=== PATIENT | male | born 1970 | race Caucasian/White ===

== ENCOUNTER 2017-06-17 12:10 | Emergency (ER) | payer MEDICAID ==
[2017-06-17 12:19] VITALS: BP 127/75
[2017-06-17] MEDS ORDERED: HYDROcod/ACETAM 5/325 MG TABLET PO STA (12:50)
--- NOTE | 2017-06-17 12:53 | ED Physician Documentation ---
PD HPI TRUNK INJURY - Stated complaint Stated Complaint: GLF/R SIDE PX - Chief complaint Chief Complaint: General - History obtained from History obtained from: Patient - History of Present Illness Location: Right chest, Mid back (R side posterior ribs) Type of injury: Fall Timing - onset: How many days ago (5) Timing - duration: Days (5) Timing - details: Abrupt onset Pain level max: 8 Pain level now: 8 Quality: Pain, Spasm Improved by: Rest Worsened by: Moving, Palpating Associated symtptoms: No: Weakness, Numbness, Tingling, Swelling Contributing factors: No: Anticoagulated, Other injury Where injury occured: Home - Additional information Additional information: taking ibuprofen, states pain worsening. Fell down the stairs 5 days ago. Review of Systems Constitutional: denies: Fever, Chills GI: denies: Nausea, Vomiting, Diarrhea Skin: denies: Rash Musculoskeletal: denies: Neck pain, Back pain Neurologic: denies: Headache PD PAST MEDICAL HISTORY - Past Medical History Past Medical History: No - Past Surgical History Past Surgical History: Yes Ortho: Spine surgery - Present Medications Home Medications: Ambulatory Orders Medication Instructions Recorded Confirmed Hydrocodone/Acetaminophen 1 - 2 each PO Q6H PRN #20 tablet 06/17/17 [Hydrocodon-Acetaminophen 5-325] - Allergies Allergies/Adverse Reactions: Allergies Allergy/AdvReac Type Severity Reaction Status Date / Time No Known Drug Allergies Allergy Verified 06/17/17 12:19 - Social History Does the pt smoke?: Yes Smoking Status: Current every day smoker Does the pt drink ETOH?: Yes Does the pt have substance abuse?: No - Immunizations Immunizations are current?: No PD ED PE NORMAL - Vitals Vital signs reviewed: Yes - General General: Alert and oriented X 3, No acute distress - HEENT HEENT: Atraumatic, PERRL - Neck Neck: No bony TTP - Cardiac Cardiac: RRR - Respiratory Respiratory: No respiratory distress, Clear bilaterally, Other (TTP over R anterior and posterior ribs diffusely. No crepitus. No ecchymosis) - Abdomen Abdomen: Soft, Non tender - Back Back: No CVA TTP, No spinal TTP - Derm Derm: Warm and dry - Neuro Neuro: Alert and oriented X 3 - Psych Psych: Normal mood, Normal affect Results - Vitals Vitals: Vital Signs - 24 hr 06/17/17 12:17 Temperature 36.8 C Heart Rate 81 Respiratory 16 Rate Blood Pressure 127/75 O2 Saturation 99 Oxygen O2 Source Room air - Rads (name of study) R rib xray Radiology: Prelim report reviewed, EMP read contemporaneously, See rad report ( Mildly displaced right anterolateral fifth and sixth rib fractures. ) PD MEDICAL DECISION MAKING - ED course Complexity details: reviewed results, re-evaluated patient, considered differential, d/w patient ED course: Patient is a 46-year-old male who presents to the emergency department after a fall down the stairs several days ago. Appears to have right anterolateral Fifth and sixth rib fractures. No pneumothorax. Lungs are normal. Pain well controlled. Will prescribe a small amount of pain medication for home and follow-up with his doctor. He is well-appearing, nontoxic. Afebrile. No hypoxia. Patient counseled regarding signs and symptoms for which I believe and urgent re-evaluation would be necessary. Patient with good understanding of and agreement to plan and is comfortable going home at this time This document was made in part using voice recognition software. While efforts are made to proofread this document, sound alike and grammatical errors may occur. Departure - Departure Disposition: 01 Home, Self Care Clinical Impression: Rib fracture Qualifiers: Encounter type: initial encounter Rib fracture type: multiple ribs Fracture type: closed Laterality: right Qualified Code(s): S22.41XA - Multiple fractures of ribs, right side, initial encounter for closed fracture Condition: Good Instructions: ED Fx Rib Follow-Up: your,doctor in 1 week [Other] Prescriptions: Hydrocodone/Acetaminophen [Hydrocodon-Acetaminophen 5-325] 1 - 2 each PO Q6H PRN #20 tablet PRN Reason: pain Comments: You have 2 broken ribs on your xray today. This may take several weeks to heal. Do not drink alcohol or drive while on narcotic pain medicine. Note that many narcotic pain relievers also contain tylenol/acetaminophen. Please ensure that your total dose of acetaminophen from all sources does not exceed 3 grams (3000mg) per day. You may constipated on this medication, take a stool softener such as "Colace" twice a day while you are on it. Also recommend a [id number]-ruq-[id number] laxative such as senna or MiraLAX any day that you do not have a bowel movement. If you received narcotic pain medication in the emergency department, do not drive or operate machinery for the next 24 hours. Your blood pressure was elevated today on check in to the emergency department. This does not mean that you have hypertension, it is a common phenomenon to check into the emergency department and have elevated blood pressure. I recommend that you see your primary care physician within the week to have it rechecked when you're feeling better. Discharge Date/Time: 06/17/17 14:12
[2017-06-17] MEDS ORDERED: HYDROcod/ACETAM 5/325 MG TABLET ONE (13:05)
--- NOTE | 2017-06-17 13:22 | XRAY Preliminary Report ---
Exam: XR Ribs w/PA Chest RT IMPRESSION: Mildly displaced right anterolateral fifth and sixth rib fractures. [facility] SITE ID: [id number]
--- NOTE | 2017-06-17 13:25 | XRAY Report ---
EXAM: RIGHT RIB RADIOGRAPHY EXAM DATE: 06/17/2017 01:12 PM. CLINICAL HISTORY: R rib pain s/p fall. COMPARISON: None. TECHNIQUE: 1 view of the chest and 2 views of the ribs. FINDINGS: Bones: There are mildly displaced right anterolateral fifth and sixth rib fractures. Lungs: No focal opacities. No pneumothorax. No pleural effusions. Mediastinum: Heart and mediastinal contours are unremarkable. Other: None. IMPRESSION: Mildly displaced right anterolateral fifth and sixth rib fractures. [facility] Referring Provider Line: [phone] SITE ID: [id number]
== END 2017-06-17 14:12 | disposition home or self-care (01) ==
LOC: ED 12:10
DX: S22.41XA Multiple fractures of ribs, right side, initial encounter for closed fracture (principal); W01.0XXA Fall on same level from slipping, tripping and stumbling without subsequent striking against object, initial encounter; R03.0 Elevated blood-pressure reading, without diagnosis of hypertension; F17.200 Nicotine dependence, unspecified, uncomplicated
CPT/HCPCS: 71101; 99283; A9270

== ENCOUNTER 2018-03-14 14:13 | Inpatient (IN) | payer MEDICAID ==
[2018-03-14] MEDS ORDERED: MORPHINE 2 MG/ML SYRINGE IVP STA ×2 (14:30→15:53)
[2018-03-14] MEDS ORDERED: AMPICILLIN/SULBACTAM 3 GM in SODIUM CHLORIDE 0.9% MINIBAG 100 ML IV STA (14:30)
[2018-03-14] MEDS ORDERED: VANCOMYCIN INJ 2 GM in SODIUM CHLORIDE 0.9% 500 ML IV STA (14:30)
--- NOTE | 2018-03-14 14:31 | ED Physician Documentation ---
PD HPI UPPER EXT INJURY - Stated complaint Stated Complaint: L MIDDLE FINGER SWOLLEN - Chief complaint Chief Complaint: Ext Problem - History obtained from History obtained from: Patient - History of Present Illness Location: Other (Right-handed gentleman who maybe got a little scrape on his left middle finger a few days ago and of the last 24 hours has become significantly swollen and very painful. He may have a subjective fever he is not sure. N.p.o. since may be an hour ago when he drank a beer.) Worsened by: Moving Associated symptoms: Swelling Contributing factors: No: Anticoagulated Review of Systems Ten Systems: 10 systems reviewed and negative Constitutional: reports: Fever. denies: Chills Nose: reports: Reviewed and negative Cardiac: reports: Reviewed and negative Respiratory: reports: Reviewed and negative PD PAST MEDICAL HISTORY - Past Medical History Past Medical History: No - Past Surgical History Past Surgical History: Yes Ortho: Spine surgery - Present Medications Home Medications: Ambulatory Orders Medication Instructions Recorded Confirmed No Known Home Medications [No 03/14/18 03/14/18 Known Home Medications] - Allergies Allergies/Adverse Reactions: Allergies Allergy/AdvReac Type Severity Reaction Status Date / Time No Known Drug Allergies Allergy Verified 06/17/17 12:19 - Social History Does the pt smoke?: Yes Smoking Status: Current every day smoker Does the pt drink ETOH?: Yes ETOH Use: Beer Does the pt have substance abuse?: Yes Substance Use and Type: Marijuana - Family History Family history: reports: Non contributory - Immunizations Immunizations are current?: No Immunizations: TDAP >10years/unknown - POLST Patient has POLST: No PD ED PE NORMAL - Vitals Vital signs reviewed: Yes - General General: Alert and oriented X 3, No acute distress - HEENT HEENT: PERRL, EOMI - Neck Neck: Supple, no meningeal sign, No bony TTP - Cardiac Cardiac: RRR, No murmur - Respiratory Respiratory: No respiratory distress, Clear bilaterally - Abdomen Abdomen: Normal bowel sounds, Soft, Non tender - Back Back: No CVA TTP, No spinal TTP - Derm Derm: Normal color, Warm and dry - Extremities Extremities: Other (He has a massive abscess of the left middle finger, almost circumferential around the proximal phalanx. He is unable to move it at all. He does not really have other signs of flexor tenosynovitis, specifically he does not have pain with palpation along the flexor tendon sheath proximally.) - Neuro Neuro: Alert and oriented X 3 Eye Opening: Spontaneous Motor: Obeys Commands Verbal: Oriented GCS Score: 15 - Psych Psych: Normal mood, Normal affect Results - Vitals Vitals: Vital Signs - 24 hr 03/14/18 14:16 Temperature 36.7 C Heart Rate 89 Respiratory 18 Rate Blood Pressure 124/74 O2 Saturation 100 Oxygen O2 Source Room air - Labs Labs: Microbiology 03/14/18 15:24 Wound Culture - Preliminary Abscess Laboratory Tests 03/14/18 03/14/18 14:35 14:35 WBC 11.2 H RBC 4.97 Hgb 15.5 Hct 46.4 MCV 93.4 MCH 31.1 H MCHC 33.3 RDW 14.5 Plt Count 320 MPV 8.9 Neut # 8.7 H Lymph # 1.6 Vance # 0.7 Eos # 0.1 Baso # 0.1 Absolute Nucleated RBC 0.00 Nucleated RBC % 0.0 Sodium 136 Potassium 3.8 Chloride 106 Carbon Dioxide 22 Anion Gap 8.0 BUN 7 Creatinine 0.7 Estimated GFR (MDRD) 121 Glucose 136 H Calcium 9.3 - Rads (name of study) L Hand Radiology: EMP read contemporaneously ([facility] LMF) PD MEDICAL DECISION MAKING - ED course ED course: This is a 47-year-old gentleman with a very large hand and finger abscess that will likely need incision and drainage in the operating room and I spoke with Dr. Chandler for admission at 2:[address] Chandler did an incision and drainage at the bedside. I spoke with Dr. Dominique for admission at 3:28 PM. Departure - Departure Disposition: [facility] DC/Xfer Clinical Impression: Hand abscess Condition: Stable Discharge Date/Time: 03/14/18 16:48
[2018-03-14 14:42] LABS: BASOPHILS # (AUTO) 0.1 10^3/uL (0.0-0.1); BASOPHILS % (AUTO) 0.5 %; EOSINOPHILS # (AUTO) 0.1 10^3/uL (0.0-0.7); EOSINOPHILS % (AUTO) 0.8 %; HGB - HEMOGLOBIN 15.5 g/dL (14.0-18.0); LYMPHOCYTES # (AUTO) 1.6 10^3/uL (1.5-3.5); LYMPHOCYTES % (AUTO) 14.7 %; MEAN CORPUSCULAR HEMOGLOBIN 31.1 pg (27.0-31.0); MEAN CORPUSCULAR HGB CONC 33.3 g/dL (32.0-36.0); MEAN CORPUSCULAR VOLUME 93.4 fL (80.0-94.0); MEAN PLATELET VOLUME 8.9 fL (7.4-11.4); MONOCYTES # (AUTO) 0.7 10^3/uL (0.0-1.0); MONOCYTES % (AUTO) 5.9 %; NEUTROPHILS # (AUTO) 8.7 10^3/uL (1.5-6.6); NEUTROPHILS % (AUTO) 78.1 %; PLT - PLATELET COUNT 320 10^3/uL (130-450); RED BLOOD COUNT 4.97 10^6/uL (4.70-6.10); RED CELL DISTRIBUTION WIDTH 14.5 % (12.0-15.0); WHITE BLOOD COUNT 11.2 x10^3/uL (4.8-10.8)
[2018-03-14 14:50] LABS: CALCIUM 9.3 mg/dL (8.5-10.3); CREATININE 0.7 mg/dL (0.6-1.2)
[2018-03-14] MEDS ORDERED: VANCOMYCIN 1 GM VIAL ONE (14:58)
[2018-03-14] MEDS ORDERED: LIDOCAINE 1%-EPI 1:100000 30 ML MDV ONE (15:08)
--- NOTE | 2018-03-14 15:32 | XRAY Report ---
EXAM: LEFT HAND RADIOGRAPHY EXAM DATE: 03/14/2018 02:54 PM. CLINICAL HISTORY: LMF infection. COMPARISON: None. TECHNIQUE: 3 views. FINDINGS: Moderately severe soft tissue swelling noted involving the middle finger. No apparent foreign body material. No soft tissue gas identified. No associated bony abnormality. Articulations throughout the hand are unremarkable. IMPRESSION: Soft tissue swelling of the middle finger without additional abnormality. [facility] Referring Provider Line: [phone] SITE ID: [id number]
--- NOTE | 2018-03-14 15:32 | XRAY Preliminary Report ---
Exam: XR HAND 3 VIEW LT IMPRESSION: Soft tissue swelling of the middle finger without additional abnormality. [facility] SITE ID: [id number]
[2018-03-14] MEDS ORDERED: ONDANSETRON 4 MG/2 ML VIAL IVP PRN (15:53)
[2018-03-14] MEDS ORDERED: SODIUM CHLORIDE FLUSH 0.9% 10 ML SYRINGE IVP PRN (15:53)
--- NOTE | 2018-03-14 16:03 | HISTORY & PHYSICAL EXAMINATION ---
Chief Complaint - Chief Complaint Chief Complaint: left hand abscess and pain History of Present Illness - Admitted From Admitted From:: ER - History Obtained From History obtained from: pt - History of Present Illness HPI Comment/Other: Mr. Lassiter is 47-yrs-old male, unfortunately homeless, with a PMH significant for cigarette smoker, illicit drug methamphetamine abuse, who present ER complaint of left hand infection. Pt report he had a tiny scrape on his left middle finger 3-4 days, then the site rapidly developed significant swelling and very painful. Pt denies fever, chill. Xray reveals soft tissue swelling of the middle finger without additional abnormality. Orthopedics was consulted in ER. Dr. Rico then did I/D for pt. Pt report he smokes 6-7 cigarettes daily, also he report he still smokes Methamphetamine. Lab test ER reveals slight elevated WBC, otherwise is unremarkable. Pt is admitted for treatment of hand infection. History - Past Medical History MRSA Hx?: No - Past Surgical History Ortho: reports: Spine surgery - Family & Social History Family History: Mother: Alive and Well (pt did not know his parents health conditions), Father: Alive and Well Family History Comment/Other: Pt report he is single, never . Pt state he has not been along with his parents. He does not know his parent medical conditions. His parents are living [facility] as well. He has one young brother, less 4 yrs than him. Living arrangement: Homeless Social History Notes: Pt report he is living at [facility]. He is homeless, no job. 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 He report he smokes 6-7 cigarette daily and report he is still smoking methamphetamine now. He denies he has alcohol issue. - Substance History Use: Uses substance without health or social issues: Tobacco Abuse: Recurrent use of substance despite neg consequences: Amphetamine Dependence: Experiences withdrawal or developed tolerances: Amphetamine - POLST Patient has POLST: No POLST Status: Full Code Meds/Allgy - Home Medications Home Medications: Ambulatory Orders Medication Instructions Recorded Confirmed No Known Home Medications [No 03/14/18 03/14/18 Known Home Medications] - Allergies Allergies/Adverse Reactions: Allergies Allergy/AdvReac Type Severity Reaction Status Date / Time No Known Drug Allergies Allergy Verified 06/17/17 12:19 Review of Systems - Constitutional Constitutional: denies: Fatigue, Fever, Chills, Malaise, Weakness, Poor appetite , Diaphoresis, Night sweats - Eyes Eyes: denies: Pain, Irritation, Amaurosis, Blurred vision, Spots in vision, Field loss, Vision loss, Dipolpia - Ears, Nose & Throat Ears, Nose & Throat: denies: Ear pain, Hearing loss, Hearing aids, Tinnitus, Vertigo, Nasal pain, Nasal discharge, Nosebleeds, Nasal obstruction, Nasal congestion, Dentures, Sore throat, Mouth lesions, Bleeding gums - Cardiovascular Cariovascular: denies: Irregular heart rate, Palpitations, Chest pain, Edema, Lightheadedness, Syncope, Exertional dyspnea, Decr. exercise tolerance - Respiratory Respiratory: denies: Cough, Sputum production, Wheezing, Snoring, Hemoptysis, Orthopnea, SOB at rest, SOB with exertion - Gastrointestinal Gastrointestinal: denies: Abdominal pain, Abdominal distention, Constipation, Diarrhea, Change in bowel habits, Rectal bleeding, Black stools, Bloody stools, Nausea, Vomiting, Rufino blood emesis, Coffee grounds emesis, Reflux/heartburn - Genitourinary Genitourinary: denies: Dysuria, Frequency, Urgency, Hematuria, Incontinence, Flank pain, Nocturia, Urethral discharge - Musculoskeletal Musculoskeletal: reports: Joint swelling. denies: Muscle pain, Back pain, Muscle aches, Stiffness, Limited range of motion, Muscle weakness, Gout, Joint pain - Integumentary Integumentary: denies: Rash, Pruritis, Lesions, Dryness, Lumps, Acne, Pigment changes, Nail changes, Hair changes - Neurological Neurological: denies: General weakness, Focal weakness, Headache, Dizziness, Numbness, Memory problems, Pre-existing deficit, Abnormal gait, Seizures, Incoordination, Slurred speech - Psychiatric Psychiatric: denies: Depression, Anxiety, Suicidal, Delusions, Hallucinations, Homicidal - Endocrine Endocrine: denies: Polyuria, Polydypsia, Polyphagia, Intolerance to cold - Hematologic/Lymphatic Hematologic/Lymphatic: denies: Anemia, Bruising, Petechiae, Blood clots, Lymphadenopathy, Bleeding tendencies, Recurrent infections Exam - Vital Signs Reviewed Vital Signs: Yes Vital Signs: Vital Signs x48h Temp Pulse Resp BP Pulse Ox 03/14/18 14:16 36.7 C 89 18 124/74 100 - Physical Exam General Appearance: positive: No acute distress, Alert. negative: Lethargic Eyes Bilateral: positive: Normal inspection, PERRL, No lid inflammation, Conjunctivae nml ENT: positive: ENT inspection nml, Pharynx nml, No signs of dehydration. negative: Purulent nasal drainage, Pharyngeal erythema, Oral lesions Neck: positive: Nml inspection, Thyroid nml, No JVD, Trachea midline. negative : Thyromegaly, Lymphadenopathy (R), Lymphadenopathy (L), Stiff neck, Carotid bruit, Swelling/bruising, Tracheal deviation Respiratory: positive: Chest non-tender, No respiratory distress, Breath sounds nml. negative: Wheezes, Rales, Rhonchi Cardiovascular: positive: Regular rate & rhythm, No murmur, No gallop. negative : Irregularly irregular, Extrasystoles, Tachycardia, Bradycardia, JVD present, Systolic murmur, Diastolic murmur Peripheral Pulses: positive: 2+ Abdomen: positive: Non-tender, No organomegaly, Nml bowel sounds, No distention. negative: Tenderness, Guarding, Rebound Back: positive: Nml inspection. negative: CVA tenderness (R), CVA tenderness (L ) Skin: positive: Color nml, No rash, Warm, Dry. negative: Cyanosis, Diaphoresis , Pallor Extremities: positive: Full ROM. negative: Calf tenderness, Joint swelling, Kristi's sign/cords Neurologic/Psychiatric: positive: Motor nml, Sensation nml. negative: Weakness , Sensory loss, Facial droop, Slurred/abnml speech, Depressed mood/affect Conclusion/Plan - Problem List (1) Hand abscess Conclusion/Plan: orthopedics did I/D for pt and wound culture, follow up blood culture Unsyn Vancomycin IVF pain control (2) Cigarette smoker Conclusion/Plan: Nicotine patch consult and advise pt quit cigarette smoking (3) Illicit drug use Conclusion/Plan: pt report he is current using methamphetamine UDS consult and advise pt quit (4) DVT prophylaxis Conclusion/Plan: SCD, pt had no limitation of mobility (5) Full code status Conclusion/Plan: pt request full code - Lab Results Fish Bones: 03/14/18 14:35 03/14/18 14:35 Core Measures - Anticipated LOS I expect patient to be DC'd or transferred within 96 hours.: Yes - DVT/VTE - Prophylaxis VTE/DVT Device ordered at admit?: Yes
[2018-03-14] MEDS ORDERED: VANCOMYCIN PER PHARMACY 1.5 GM in SODIUM CHLORIDE 0.9% 250 ML IV SCH (17:00)
--- NOTE | 2018-03-14 18:18 | CONSULTATION NOTE ---
DATE OF SERVICE: 03/14/2018 Physician: Sonny Chandler MD HISTORY OF PRESENT ILLNESS: Consultation from ED physician regarding left hand infection. This 47-year-old homeless man, previous bryan has had a 2-day course of pain and swelling in his left nondominant middle finger. He noticed this very slight wound in the volar crease of the proximal interphalangeal joint. This was several days ago. He did not know what might have caused the cut. This did seal off. He then had onset of swelling, pain in the middle finger. Seemed to be getting worse during the day, so he had a beer and came on in to the emergency room. He was not feeling sick all over. He admits to amphetamine use. PHYSICAL EXAMINATION: He is a very pleasant man, not very disheveled. In the left hand, he has obvious enlargement over the volar aspect of the proximal phalanx of the middle finger. This has a whitish appearance to it. It stops abruptly at the volar crease at the MCP joint. It goes around towards the dorsum of the digit, but does not get fully to the dorsum. Extends about half the distance between the PIP joint and DIP joint on the volar aspect. He is not tender in the palm. He is not tender at the volar wrist. He can actively flex and extend the digit through a limited range of motion, but it is not immobile as it would be in a flexor tendon infection. There is actually almost no swelling in the distal segment of the digit. X-RAYS: None. IMPRESSION: Very superficial infection, not involving the flexor tendon yet. PROCEDURE: After sterile preparation of the hand and some 1% lidocaine with epinephrine infiltrated into what seemed to be the dermis, a longitudinal incision was made with an 11 blade. There was immediate pus under pressure, which leaked out. A portion of this was sent for culture. The purulence was quite painful as it moved out. We washed this some with normal saline. The infection was primarily in the layer between the living dermis and the cornified epithelial dermis. There was a pus bulla. With a scalpel and scissors, I trimmed the listed cornified epithelium off the tissue below. Once we got a little more opening, it was possible to express more pus, which ran out easily. Then, we were able to run some lidocaine with epinephrine over the raw wound. This allowed him to be more comfortable as I trimmed off and unroofed as much of the bulla as possible. There was an area about 5 mm diameter towards the radial aspect of the PIP crease, which went slightly deeper. However, when he moved his digit, there was no visible tendon. More treatment with lidocaine was effective and allowing me to wash the finger significantly in the wound. It was very clean when finished. Xeroform gauze was used over this and dry absorbent bandage was applied over this. I think he should come into the hospital for at least 1 night of IV antibiotics and preferably 1-2 more depending on the condition of his hand. He is still at risk for developing a flexor tenosynovitis. Antibiotics were discussed with the hospitalist. cc: Benny Urrutia M.D. TD: 03/14/2018 16:43
[2018-03-14] MEDS: NICOTINE 14 MG PATCH TOP SCH (18:46)
[2018-03-14] MEDS: SODIUM CHLORIDE 0.9% 1,000 ML IV SCH (18:46)
[2018-03-14] MEDS: SODIUM CHLORIDE FLUSH 0.9% 10 ML SYRINGE IVP SCH (18:47)
[2018-03-14 18:49] LABS: MUDS CUTOFF CONCENTRATIONS CUTOFF CONC BELOW:
[2018-03-14] MEDS: AMPICILLIN/SULBACTAM 3 GM in SODIUM CHLORIDE 0.9% MINIBAG 100 ML IV SCH (18:57)
[2018-03-14 19:06] LABS: AMPHETAMINE SCREEN,URINE NEGATIVE (NEGATIVE); BENZODIAZEPINES SCREEN, URINE NEGATIVE (NEGATIVE); COCAINE SCREEN URINE NEGATIVE (NEGATIVE); METHADONE SCREEN, URINE NEGATIVE (NEGATIVE); METHAMPHETAMINES SCREEN, URINE NEGATIVE (NEGATIVE); OPIATE SCREEN, URINE POSITIVE (NEGATIVE); OXYCODONE SCREEN, URINE NEGATIVE (NEGATIVE); PROPOXYPHENE SCREEN, URINE NEGATIVE (NEGATIVE); TRICYCLIC ANTIDEPRESSANT,URINE NEGATIVE (NEGATIVE)
[2018-03-15] MEDS: VANCOMYCIN INJ 1 GM in SODIUM CHLORIDE 0.9% 250 ML IV SCH ×3 (00:42→16:29)
[2018-03-15] MEDS: MORPHINE 2 MG/ML SYRINGE IVP PRN ×3 (00:45→18:34)
[2018-03-15] MEDS: SODIUM CHLORIDE FLUSH 0.9% 10 ML SYRINGE IVP SCH ×3 (00:45→16:30)
[2018-03-15] MEDS: AMPICILLIN/SULBACTAM 3 GM in SODIUM CHLORIDE 0.9% MINIBAG 100 ML IV SCH ×4 (02:51→21:56)
[2018-03-15] MEDS: ACETAMINOPHEN 325 MG TABLET PO PRN ×2 (02:53→13:29)
[2018-03-15 07:00] LABS: BASOPHILS % (AUTO) 0.6 %; EOSINOPHILS # (AUTO) 0.2 10^3/uL (0.0-0.7); EOSINOPHILS % (AUTO) 2.8 %; HGB - HEMOGLOBIN 13.5 g/dL (14.0-18.0); LYMPHOCYTES # (AUTO) 1.4 10^3/uL (1.5-3.5); LYMPHOCYTES % (AUTO) 21.6 %; MEAN CORPUSCULAR HEMOGLOBIN 30.4 pg (27.0-31.0); MEAN CORPUSCULAR HGB CONC 32.5 g/dL (32.0-36.0); MEAN CORPUSCULAR VOLUME 93.4 fL (80.0-94.0); MEAN PLATELET VOLUME 8.5 fL (7.4-11.4); MONOCYTES # (AUTO) 0.4 10^3/uL (0.0-1.0); MONOCYTES % (AUTO) 7.2 %; NEUTROPHILS # (AUTO) 4.3 10^3/uL (1.5-6.6); NEUTROPHILS % (AUTO) 67.8 %; PLT - PLATELET COUNT 264 10^3/uL (130-450); RED BLOOD COUNT 4.44 10^6/uL (4.70-6.10); RED CELL DISTRIBUTION WIDTH 14.2 % (12.0-15.0); WHITE BLOOD COUNT 6.3 x10^3/uL (4.8-10.8)
[2018-03-15 07:15] LABS: ALBUMIN 3.1 g/dL (3.2-5.5); ALBUMIN/GLOBULIN RATIO 1.2 (1.0-2.2); BILIRUBIN,TOTAL 0.5 mg/dL (0.2-1.0); CALCIUM 8.5 mg/dL (8.5-10.3); CREATININE 0.7 mg/dL (0.6-1.2); MAGNESIUM 1.7 mg/dL (1.7-2.8); TOTAL PROTEIN 5.7 g/dL (6.7-8.2)
--- NOTE | 2018-03-15 09:21 | PROVIDER PROGRESS NOTE ---
Subjective - General Admit Date: 03/14/18 Procedure Date: 03/14/18 Post Op Days: 1 Procedure Performed: I and D left middle finger - Review of Systems Wound/Incisions: positive: Dressing dry and intact Functional Status: positive: 1, 2, 3, 4 General: positive: Other (minimal pain) Musculoskeletal: positive: Other (Minimal 3rd tip swelling. Normal sensation, good cap refill) Neurological: Objective - Patient Data Vital Signs: Vital Signs x48h Temp Pulse Resp BP Pulse Ox 03/15/18 07:47 36.6 C 68 20 121/73 98 Weight: Weight 03/13/18 03/14/18 03/15/18 23:59 23:59 23:59 Weight (kg) 73 kg Intake & Output: Intake and Output Totals x24h 03/13/18 03/14/18 03/15/18 23:59 23:59 23:59 Intake Total 1300 1301 Output Total 1 Balance 1299 1301 - Lab Results Lab Results: 03/15/18 06:40 03/15/18 06:40 Other Lab Results: Lab Results x24hrs 03/15/18 03/15/18 03/14/18 Range/Units 06:40 06:40 18:30 WBC 6.3 (4.8-10.8) x10^3/uL RBC 4.44 L (4.70-6.10) 10^6/uL Hgb 13.5 L (14.0-18.0) g/dL Hct 41.5 L (42.0-52.0) % MCV 93.4 (80.0-94.0) fL MCH 30.4 (27.0-31.0) pg MCHC 32.5 (32.0-36.0) g/dL RDW 14.2 (12.0-15.0) % Plt Count 264 (130-450) 10^3/uL MPV 8.5 (7.4-11.4) fL Neut # 4.3 (1.5-6.6) 10^3/uL Lymph # 1.4 L (1.5-3.5) 10^3/uL [place] # 0.4 (0.0-1.0) 10^3/uL Eos # 0.2 (0.0-0.7) 10^3/uL Baso # 0.0 (0.0-0.1) 10^3/uL Absolute Nucleated RBC 0.00 x10^3/uL Nucleated RBC % 0.0 /100WBC Sodium 138 (135-145) mmol/L Potassium 3.6 (3.5-5.0) mmol/L Chloride 105 (101-111) mmol/L Carbon Dioxide 25 (21-32) mmol/L Anion Gap 8.0 (6-13) BUN 11 (6-20) mg/dL Creatinine 0.7 (0.6-1.2) mg/dL Estimated GFR (MDRD) 121 (>89) Glucose 98 (70-100) mg/dL Calcium 8.5 (8.5-10.3) mg/dL Magnesium 1.7 (1.7-2.8) mg/dL Total Bilirubin 0.5 (0.2-1.0) mg/dL AST 11 (10-42) IU/L ALT 10 (10-60) IU/L Alkaline Phosphatase 60 (42-121) IU/L Total Protein 5.7 L (6.7-8.2) g/dL Albumin 3.1 L (3.2-5.5) g/dL Globulin 2.6 (2.1-4.2) g/dL Albumin/Globulin Ratio 1.2 (1.0-2.2) Urine Opiates Screen POSITIVE H (NEGATIVE) Ur Oxycodone Screen NEGATIVE (NEGATIVE) Urine Methadone Screen NEGATIVE (NEGATIVE) Ur Propoxyphene Screen NEGATIVE (NEGATIVE) Ur Barbiturates Screen NEGATIVE (NEGATIVE) Ur Tricyclics Screen NEGATIVE (NEGATIVE) Ur Phencyclidine Scrn NEGATIVE (NEGATIVE) Ur Amphetamine Screen NEGATIVE (NEGATIVE) U Methamphetamines Scrn NEGATIVE (NEGATIVE) U Benzodiazepines Scrn NEGATIVE (NEGATIVE) Urine Cocaine Screen NEGATIVE (NEGATIVE) U Cannabinoids Screen NEGATIVE (NEGATIVE) Micro -- Gm Stain GPCs both chains and clumps - Current Medications Current Medications: Current Medications Generic Name Dose Route Start Last Admin Trade Name Freq PRN Reason Stop Dose Admin Acetaminophen 650 mg 03/14/18 15:53 03/15/18 02:53 Tylenol PO 650 mg Q4HR PRN Administration Pain 1 to 4 Sodium Chloride 1,000 mls @ 100 mls/hr 03/14/18 16:00 03/15/18 04:25 Normal Saline 0.9% IV 100 mls/hr .Q10H [facility] In[facility] Ampicillin Sodium/Sulbactam 100 mls @ 200 mls/hr 03/14/18 20:00 03/15/18 04: 25 Sodium 3 gm/ Sodium Chloride IV Infused Q6H [facility] In[facility] Vancomycin HCl 1 gm/ Sodium 250 mls @ 100 mls/hr 03/15/18 00:00 03/15/18 03: 35 Chloride IV Infused Q8H [facility] In[facility] Morphine Sulfate 2 mg 03/14/18 15:53 03/15/18 00:45 Morphine IVP 2 mg Q2H PRN Administration Pain 8 to 10 Nicotine 1 patch 03/14/18 18:00 03/14/18 18:46 Nicoderm TOP 1 patch Q24H [facility] Administration Sodium Chloride 10 ml 03/14/18 17:00 03/15/18 00:45 Normal Saline Flush 0.9% IVP 10 ml 0100,0900,1700 [facility] Administration ABX Reporting Has patient been on IV antibiotics over the past 48 hours?: Yes Impression/Plan - Problem List Problem List: No flexor tenosynovitis, As expected. ABx should cover bacteria if Strep and Staph Plan COntinue same Abx until culture returns
[2018-03-15] MEDS: SODIUM CHLORIDE 0.9% 1,000 ML IV SCH ×2 (10:07→23:35)
[2018-03-15] MEDS: FAMOTIDINE 20 MG TABLET PO SCH (10:11)
[2018-03-15] MEDS: POLYETHYLENE GLYCOL 3350 17 GM PACKET PO SCH (10:11)
--- NOTE | 2018-03-15 12:12 | PROVIDER PROGRESS NOTE ---
Subjective - Prog Note Date Prog Note Date: 03/15/18 - Subjective Pt reports feeling: Improved Subjective: pt report his pain is good controlled, feel better. No fever, chill, cough, SOB , CP Current Medications - Current Medications Current Medications: Active Medications Acetaminophen (Tylenol) 650 mg PO Q4HR PRN PRN Reason: Pain 1 to 4 Last Admin: 03/15/18 02:53 Dose: 650 mg Famotidine (Pepcid) 20 mg PO DAILY [facility] Last Admin: 03/15/18 10:11 Dose: 20 mg Sodium Chloride (Normal Saline 0.9%) 1,000 mls @ 100 mls/hr IV .Q10H [facility] Last Infusion: 03/15/18 11:00 Dose: 0 mls/hr Ampicillin Sodium/Sulbactam (Sodium 3 gm/ Sodium Chloride) 100 mls @ 200 mls/ hr IV Q6H [facility] Last Infusion: 03/15/18 10:45 Dose: Infused Vancomycin HCl 1 gm/ Sodium (Chloride) 250 mls @ 100 mls/hr IV Q8H [facility] Last Admin: 03/15/18 10:58 Dose: 100 mls/hr Lorazepam (Ativan Inj (Vial)) 0.5 mg IVP Q2H PRN PRN Reason: Anxiety Morphine Sulfate (Morphine) 2 mg IVP Q2H PRN PRN Reason: Pain 8 to 10 Last Admin: 03/15/18 10:17 Dose: 2 mg Nicotine (Nicoderm) 1 patch TOP Q24H [facility] Last Admin: 03/14/18 18:46 Dose: 1 patch Ondansetron HCl (Zofran Inj) 4 mg IVP Q6HR PRN PRN Reason: Nausea / Vomiting Polyethylene Glycol (Miralax) 17 gm PO DAILY [facility] Last Admin: 03/15/18 10:11 Dose: Not Given Sodium Chloride (Normal Saline Flush 0.9%) 10 ml IVP PRN PRN PRN Reason: NEEDED PER PROVIDER ORDERS Sodium Chloride (Normal Saline Flush 0.9%) 10 ml IVP 0100,0900,1700 [facility] Last Admin: 03/15/18 10:12 Dose: Not Given No Known Home Medications [No Known Home Medications] 03/14/18 Objective - Vital Signs/Intake & Output Reviewed Vital Signs: Yes Vital Signs: Vital Signs x48h Temp Pulse Resp BP Pulse Ox 03/15/18 07:47 36.6 C 68 20 121/73 98 Intake & Output: Intake & Output 03/12/18 03/13/18 03/14/18 03/15/18 23:59 23:59 23:59 23:59 Intake Total 1300 1894.333 Output Total 1 Balance 1299 1894.333 - Objective General Appearance: positive: No acute distress, Alert. negative: Lethargic Eyes Bilateral: positive: Normal inspection, PERRL, No lid inflammation, Conjunctivae nml ENT: positive: ENT inspection nml, Pharynx nml, No signs of dehydration. negative: Purulent nasal drainage, Pharyngeal erythema, Oral lesions Neck: positive: Nml inspection, Thyroid nml, No JVD, Trachea midline. negative : Thyromegaly, Lymphadenopathy (R), Lymphadenopathy (L), Stiff neck, Swelling/ bruising, Tracheal deviation Respiratory: positive: Chest non-tender, No respiratory distress, Breath sounds nml. negative: Wheezes, Rales, Rhonchi Cardiovascular: positive: Regular rate & rhythm, No murmur, No gallop. negative : Irregularly irregular, Extrasystoles, Tachycardia, Bradycardia, Systolic murmur, Diastolic murmur Peripheral Pulses: 2+ Radial (R), 2+ Radial (L), 2+ Dorsalis pedis (R), 2+ Dorsalis pedis (L) Abdomen: positive: Non-tender, No organomegaly, Nml bowel sounds, No distention. negative: Tenderness, Guarding, Rebound Back: positive: Nml inspection. negative: CVA tenderness (R), CVA tenderness (L ) Skin: positive: Warm, Dry, Laceration (cm). negative: Cyanosis, Diaphoresis, Pallor Extremities: positive: Full ROM, Nml appearance. negative: Pedal edema, Calf tenderness, Kristi's sign/cords Neurologic/Psychiatric: positive: Oriented x3, Motor nml, Sensation nml, Mood/ affect nml. negative: Sensory loss, Facial droop, Slurred/abnml speech, Depressed mood/affect - Lab Results Fish Bones: 03/15/18 06:40 03/15/18 06:40 Other Labs: Lab Results x24hrs 03/15/18 03/15/18 03/14/18 Range/Units 06:40 06:40 18:30 WBC 6.3 (4.8-10.8) x10^3/uL RBC 4.44 L (4.70-6.10) 10^6/uL Hgb 13.5 L (14.0-18.0) g/dL Hct 41.5 L (42.0-52.0) % MCV 93.4 (80.0-94.0) fL MCH 30.4 (27.0-31.0) pg MCHC 32.5 (32.0-36.0) g/dL RDW 14.2 (12.0-15.0) % Plt Count 264 (130-450) 10^3/uL MPV 8.5 (7.4-11.4) fL Neut # 4.3 (1.5-6.6) 10^3/uL Lymph # 1.4 L (1.5-3.5) 10^3/uL [place] # 0.4 (0.0-1.0) 10^3/uL Eos # 0.2 (0.0-0.7) 10^3/uL Baso # 0.0 (0.0-0.1) 10^3/uL Absolute Nucleated RBC 0.00 x10^3/uL Nucleated RBC % 0.0 /100WBC Sodium 138 (135-145) mmol/L Potassium 3.6 (3.5-5.0) mmol/L Chloride 105 (101-111) mmol/L Carbon Dioxide 25 (21-32) mmol/L Anion Gap 8.0 (6-13) BUN 11 (6-20) mg/dL Creatinine 0.7 (0.6-1.2) mg/dL Estimated GFR (MDRD) 121 (>89) Glucose 98 (70-100) mg/dL Calcium 8.5 (8.5-10.3) mg/dL Magnesium 1.7 (1.7-2.8) mg/dL Total Bilirubin 0.5 (0.2-1.0) mg/dL AST 11 (10-42) IU/L ALT 10 (10-60) IU/L Alkaline Phosphatase 60 (42-121) IU/L Total Protein 5.7 L (6.7-8.2) g/dL Albumin 3.1 L (3.2-5.5) g/dL Globulin 2.6 (2.1-4.2) g/dL Albumin/Globulin Ratio 1.2 (1.0-2.2) Urine Opiates Screen POSITIVE H (NEGATIVE) Ur Oxycodone Screen NEGATIVE (NEGATIVE) Urine Methadone Screen NEGATIVE (NEGATIVE) Ur Propoxyphene Screen NEGATIVE (NEGATIVE) Ur Barbiturates Screen NEGATIVE (NEGATIVE) Ur Tricyclics Screen NEGATIVE (NEGATIVE) Ur Phencyclidine Scrn NEGATIVE (NEGATIVE) Ur Amphetamine Screen NEGATIVE (NEGATIVE) U Methamphetamines Scrn NEGATIVE (NEGATIVE) U Benzodiazepines Scrn NEGATIVE (NEGATIVE) Urine Cocaine Screen NEGATIVE (NEGATIVE) U Cannabinoids Screen NEGATIVE (NEGATIVE) ABX Reporting Has patient been on IV antibiotics over the past 48 hours?: Yes Assessment/Plan - Problem List (1) Hand abscess Impression: Conclusion/Plan: Pt report he feel better, pain is good controlled, WBC is in the normal arrange. continue antibiotics treatment follow up sensitivity study continue IVF, and pain control orthopedics did I/D for pt and wound culture, follow up blood culture Unsyn Vancomycin IVF pain control (2) Cigarette smoker Conclusion/Plan: Nicotine patch consult and advise pt quit cigarette smoking (3) Illicit drug use Conclusion/Plan: pt report he is current using methamphetamine UDS consult and advise pt quit Pt denies alcohol issue with pt, continue support.
[2018-03-15] MEDS ORDERED: KETOROLAC 15 MG/ML VIAL IM PRN (13:39)
[2018-03-15] MEDS: NICOTINE 14 MG PATCH TOP SCH (18:18)
[2018-03-15] MEDS: LORazepam 2 MG/ML VIAL IVP PRN (22:07)
[2018-03-15 23:56] LABS: VANCOMYCIN,TROUGH 17.8 ug/mL (5.0-15.0)
[2018-03-16] MEDS: VANCOMYCIN INJ 1 GM in SODIUM CHLORIDE 0.9% 250 ML IV SCH ×2 (00:01→09:40)
[2018-03-16] MEDS: SODIUM CHLORIDE FLUSH 0.9% 10 ML SYRINGE IVP SCH ×3 (00:02→17:44)
[2018-03-16] MEDS: ACETAMINOPHEN 325 MG TABLET PO PRN ×2 (00:32→20:12)
[2018-03-16] MEDS: KETOROLAC 15 MG/ML VIAL IVP PRN ×4 (02:12→20:23)
[2018-03-16] MEDS: AMPICILLIN/SULBACTAM 3 GM in SODIUM CHLORIDE 0.9% MINIBAG 100 ML IV SCH ×4 (03:07→20:23)
[2018-03-16 06:18] LABS: BASOPHILS % (AUTO) 0.9 %; EOSINOPHILS # (AUTO) 0.2 10^3/uL (0.0-0.7); EOSINOPHILS % (AUTO) 4.4 %; HGB - HEMOGLOBIN 13.8 g/dL (14.0-18.0); LYMPHOCYTES # (AUTO) 1.5 10^3/uL (1.5-3.5); LYMPHOCYTES % (AUTO) 27.3 %; MEAN CORPUSCULAR HEMOGLOBIN 30.4 pg (27.0-31.0); MEAN CORPUSCULAR HGB CONC 32.9 g/dL (32.0-36.0); MEAN CORPUSCULAR VOLUME 92.5 fL (80.0-94.0); MEAN PLATELET VOLUME 8.6 fL (7.4-11.4); MONOCYTES # (AUTO) 0.5 10^3/uL (0.0-1.0); MONOCYTES % (AUTO) 9.6 %; NEUTROPHILS # (AUTO) 3.2 10^3/uL (1.5-6.6); NEUTROPHILS % (AUTO) 57.8 %; PLT - PLATELET COUNT 266 10^3/uL (130-450); RED BLOOD COUNT 4.53 10^6/uL (4.70-6.10); RED CELL DISTRIBUTION WIDTH 13.9 % (12.0-15.0); WHITE BLOOD COUNT 5.5 x10^3/uL (4.8-10.8)
[2018-03-16 06:30] LABS: ALBUMIN 3.1 g/dL (3.2-5.5); ALBUMIN/GLOBULIN RATIO 1.1 (1.0-2.2); BILIRUBIN,TOTAL 0.5 mg/dL (0.2-1.0); CALCIUM 8.5 mg/dL (8.5-10.3); CREATININE 0.8 mg/dL (0.6-1.2); TOTAL PROTEIN 5.9 g/dL (6.7-8.2)
[2018-03-16] MEDS: SODIUM CHLORIDE 0.9% 1,000 ML IV SCH ×3 (06:39→20:55)
[2018-03-16] MEDS: FAMOTIDINE 20 MG TABLET PO SCH (08:07)
--- NOTE | 2018-03-16 10:15 | PROVIDER PROGRESS NOTE ---
Subjective - General Admit Date: 03/14/18 Procedure Date: 03/14/18 Post Op Days: 2 Procedure Performed: I and D left middle finger - Review of Systems Functional Status: positive: 1, 2, 3, 4 General: positive: Other (minimal pain) Musculoskeletal: positive: Other (Minimal 3rd tip swelling. Normal sensation, good cap refill) Objective - Patient Data Vital Signs: Vital Signs x48h Temp Pulse Resp BP Pulse Ox 03/16/18 08:00 36.7 C 79 16 123/69 96 Weight: Weight 03/14/18 03/15/18 03/16/18 23:59 23:59 23:59 Weight (kg) 73 kg Intake & Output: Intake and Output Totals x24h 03/14/18 03/15/18 03/16/18 23:59 23:59 23:59 Intake Total 1300 3640.333 2110.000 Output Total 1 150 Balance 1299 3640.333 1960.000 - Lab Results Lab Results: 03/16/18 05:45 03/16/18 05:45 Other Lab Results: Lab Results x24hrs 03/16/18 03/16/18 03/15/18 Range/Units 05:45 05:45 23:35 WBC 5.5 (4.8-10.8) x10^3/uL RBC 4.53 L (4.70-6.10) 10^6/uL Hgb 13.8 L (14.0-18.0) g/dL Hct 41.9 L (42.0-52.0) % MCV 92.5 (80.0-94.0) fL MCH 30.4 (27.0-31.0) pg MCHC 32.9 (32.0-36.0) g/dL RDW 13.9 (12.0-15.0) % Plt Count 266 (130-450) 10^3/uL MPV 8.6 (7.4-11.4) fL Neut # 3.2 (1.5-6.6) 10^3/uL Lymph # 1.5 (1.5-3.5) 10^3/uL [place] # 0.5 (0.0-1.0) 10^3/uL Eos # 0.2 (0.0-0.7) 10^3/uL Baso # 0.0 (0.0-0.1) 10^3/uL Absolute Nucleated RBC 0.00 x10^3/uL Nucleated RBC % 0.1 /100WBC Sodium 138 (135-145) mmol/L Potassium 3.5 (3.5-5.0) mmol/L Chloride 103 (101-111) mmol/L Carbon Dioxide 29 (21-32) mmol/L Anion Gap 6.0 (6-13) BUN 14 (6-20) mg/dL Creatinine 0.8 (0.6-1.2) mg/dL Estimated GFR (MDRD) 104 (>89) Glucose 96 (70-100) mg/dL Calcium 8.5 (8.5-10.3) mg/dL Total Bilirubin 0.5 (0.2-1.0) mg/dL AST 12 (10-42) IU/L ALT 10 (10-60) IU/L Alkaline Phosphatase 57 (42-121) IU/L Total Protein 5.9 L (6.7-8.2) g/dL Albumin 3.1 L (3.2-5.5) g/dL Globulin 2.8 (2.1-4.2) g/dL Albumin/Globulin Ratio 1.1 (1.0-2.2) Last Dose Date 03/15/18 Last Dose Time 1628 Vancomycin Trough 17.8 H (5.0-15.0) ug/mL Staph aureus Sens to follow, plus Strep beta hemolytic - Current Medications Current Medications: Current Medications Generic Name Dose Route Start Last Admin Trade Name Freq PRN Reason Stop Dose Admin Acetaminophen 650 mg 03/14/18 15:53 03/16/18 00:32 Tylenol PO 650 mg Q4HR PRN Administration Pain 1 to 4 Famotidine 20 mg 03/15/18 09:00 03/16/18 08:07 Pepcid PO 20 mg DAILY [facility] Administration Sodium Chloride 1,000 mls @ 100 mls/hr 03/14/18 16:00 03/16/18 09:32 Normal Saline 0.9% IV 0 mls/hr .Q10H [facility] Infusion Ampicillin Sodium/Sulbactam 100 mls @ 200 mls/hr 03/14/18 20:00 03/16/18 08: 07 Sodium 3 gm/ Sodium Chloride IV 200 mls/hr Q6H [facility] Administration Vancomycin HCl 1 gm/ Sodium 250 mls @ 100 mls/hr 03/15/18 00:00 03/16/18 09: 40 Chloride IV 100 mls/hr Q8H [facility] Administration Ketorolac Tromethamine 15 mg 03/15/18 19:39 03/16/18 09:47 Toradol Inj IVP 03/20/18 13:59 15 mg Q6H PRN Administration PAIN Lorazepam 0.5 mg 03/14/18 17:46 03/15/18 22:07 Ativan Inj (Vial) IVP 0.5 mg Q2H PRN Administration Anxiety Morphine Sulfate 2 mg 03/14/18 15:53 03/15/18 18:34 Morphine IVP 2 mg Q2H PRN Administration Pain 8 to 10 Nicotine 1 patch 03/14/18 18:00 03/15/18 18:18 Nicoderm TOP 1 patch Q24H [facility] Administration Polyethylene Glycol 17 gm 03/15/18 09:00 03/15/18 10:11 Miralax PO Not Given DAILY [facility] Sodium Chloride 10 ml 03/14/18 17:00 03/16/18 02:13 Normal Saline Flush 0.9% IVP 10 ml 0100,0900,1700 [facility] Administration - Physical Exam Extremities: positive: Other (Left Middle Finger still makedly swollen over the middle and proximal phalanges. Mild distal swelling. No palm tenderness. Able to move joints moderately without pain. Wound itself very bright red. Probably wound is deep enough to have killed all epithelial cells.) Impression/Plan - Problem List Problem List: Superficial strep and staph infection with initial spread into subcutaneous tissue. No sign of flexor tendon involvement. I recommend one more day of IV antibiotics, and to allow return of sensitivities for the Staph aureus species
[2018-03-16] MEDS: POLYETHYLENE GLYCOL 3350 17 GM PACKET PO SCH (11:08)
--- NOTE | 2018-03-16 13:45 | PROVIDER PROGRESS NOTE ---
Subjective - Prog Note Date Prog Note Date: 03/16/18 - Subjective Pt reports feeling: Improved Subjective: pt state he feels better, pain is good controlled. no fever, chill. Orthopedics changed dressing for pt, and recommend stay overnight, it seems still having swelling in the hand per orthopedics reported. Current Medications - Current Medications Current Medications: Active Medications Acetaminophen (Tylenol) 650 mg PO Q4HR PRN PRN Reason: Pain 1 to 4 Last Admin: 03/16/18 00:32 Dose: 650 mg Famotidine (Pepcid) 20 mg PO DAILY [facility] Last Admin: 03/16/18 08:07 Dose: 20 mg Sodium Chloride (Normal Saline 0.9%) 1,000 mls @ 100 mls/hr IV .Q10H [facility] Last Infusion: 03/16/18 12:21 Dose: 100 mls/hr Ampicillin Sodium/Sulbactam (Sodium 3 gm/ Sodium Chloride) 100 mls @ 200 mls/ hr IV Q6H [facility] Last Infusion: 03/16/18 09:45 Dose: Infused Vancomycin HCl 1 gm/ Sodium (Chloride) 250 mls @ 100 mls/hr IV Q8H [facility] Last Infusion: 03/16/18 12:21 Dose: Infused Ketorolac Tromethamine (Toradol Inj) 15 mg IVP Q6H PRN PRN Reason: PAIN Stop: 03/20/18 13:59 Last Admin: 03/16/18 09:47 Dose: 15 mg Lorazepam (Ativan Inj (Vial)) 0.5 mg IVP Q2H PRN PRN Reason: Anxiety Last Admin: 03/15/18 22:07 Dose: 0.5 mg Morphine Sulfate (Morphine) 2 mg IVP Q2H PRN PRN Reason: Pain 8 to 10 Last Admin: 03/15/18 18:34 Dose: 2 mg Nicotine (Nicoderm) 1 patch TOP Q24H [facility] Last Admin: 03/15/18 18:18 Dose: 1 patch Ondansetron HCl (Zofran Inj) 4 mg IVP Q6HR PRN PRN Reason: Nausea / Vomiting Polyethylene Glycol (Miralax) 17 gm PO DAILY [facility] Last Admin: 03/16/18 11:08 Dose: Not Given Sodium Chloride (Normal Saline Flush 0.9%) 10 ml IVP PRN PRN PRN Reason: NEEDED PER PROVIDER ORDERS Sodium Chloride (Normal Saline Flush 0.9%) 10 ml IVP 0100,0900,1700 [facility] Last Admin: 03/16/18 02:13 Dose: 10 ml No Known Home Medications [No Known Home Medications] 03/14/18 Objective - Vital Signs/Intake & Output Reviewed Vital Signs: Yes Vital Signs: Vital Signs x48h Temp Pulse Resp BP Pulse Ox 03/16/18 08:00 36.7 C 79 16 123/69 96 Intake & Output: Intake & Output 03/13/18 03/14/18 03/15/18 03/16/18 23:59 23:59 23:59 23:59 Intake Total 1300 3640.333 2580.000 Output Total 1 150 Balance 1299 3640.333 2430.000 - Objective General Appearance: positive: No acute distress, Alert. negative: Lethargic Eyes Bilateral: positive: Normal inspection, PERRL, No lid inflammation, Conjunctivae nml ENT: positive: ENT inspection nml, Pharynx nml, No signs of dehydration. negative: Purulent nasal drainage, Pharyngeal erythema, Oral lesions Neck: positive: Nml inspection, Thyroid nml, No JVD, Trachea midline. negative : Thyromegaly, Lymphadenopathy (R), Lymphadenopathy (L), Stiff neck, Swelling/ bruising, Tracheal deviation Respiratory: positive: Chest non-tender, No respiratory distress, Breath sounds nml. negative: Wheezes, Rales, Rhonchi Cardiovascular: positive: Regular rate & rhythm, No murmur, No gallop. negative : Irregularly irregular, Extrasystoles, Tachycardia, Bradycardia, JVD present, Systolic murmur, Diastolic murmur Peripheral Pulses: 2+ Radial (R), 2+ Radial (L), 2+ Dorsalis pedis (R), 2+ Dorsalis pedis (L) Abdomen: positive: Non-tender, No organomegaly, Nml bowel sounds, No distention. negative: Tenderness, Guarding, Rebound Back: positive: Nml inspection. negative: CVA tenderness (R), CVA tenderness (L ) Skin: positive: Color nml, No rash, Warm, Dry. negative: Cyanosis, Diaphoresis , Pallor Extremities: positive: Non-tender, Full ROM, Nml appearance. negative: Calf tenderness, Joint swelling, Kristi's sign/cords Neurologic/Psychiatric: positive: Oriented x3, Motor nml, Sensation nml, Mood/ affect nml. negative: Weakness, Sensory loss, Facial droop, Slurred/abnml speech, Depressed mood/affect - Lab Results Fish Bones: 03/16/18 05:45 03/16/18 05:45 Other Labs: Lab Results x24hrs 03/16/18 03/16/18 03/16/18 Range/Units 11:16 11:16 05:45 WBC (4.8-10.8) x10^3/uL RBC (4.70-6.10) 10^6/uL Hgb (14.0-18.0) g/dL Hct (42.0-52.0) % MCV (80.0-94.0) fL MCH (27.0-31.0) pg MCHC (32.0-36.0) g/dL RDW (12.0-15.0) % Plt Count (130-450) 10^3/uL MPV (7.4-11.4) fL Neut # (1.5-6.6) 10^3/uL Lymph # (1.5-3.5) 10^3/uL [place] # (0.0-1.0) 10^3/uL Eos # (0.0-0.7) 10^3/uL Baso # (0.0-0.1) 10^3/uL Absolute Nucleated RBC x10^3/uL Nucleated RBC % /100WBC ESR 4 (0-15) mm/Hr Sodium 138 (135-145) mmol/L Potassium 3.5 (3.5-5.0) mmol/L Chloride 103 (101-111) mmol/L Carbon Dioxide 29 (21-32) mmol/L Anion Gap 6.0 (6-13) BUN 14 (6-20) mg/dL Creatinine 0.8 (0.6-1.2) mg/dL Estimated GFR (MDRD) 104 (>89) Glucose 96 (70-100) mg/dL Calcium 8.5 (8.5-10.3) mg/dL Total Bilirubin 0.5 (0.2-1.0) mg/dL AST 12 (10-42) IU/L ALT 10 (10-60) IU/L Alkaline Phosphatase 57 (42-121) IU/L C-Reactive Protein < 1.0 (0-1.0) mg/dL Total Protein 5.9 L (6.7-8.2) g/dL Albumin 3.1 L (3.2-5.5) g/dL Globulin 2.8 (2.1-4.2) g/dL Albumin/Globulin Ratio 1.1 (1.0-2.2) Last Dose Date Last Dose Time Vancomycin Trough (5.0-15.0) ug/mL 03/16/18 03/15/18 Range/Units 05:45 23:35 WBC 5.5 (4.8-10.8) x10^3/uL RBC 4.53 L (4.70-6.10) 10^6/uL Hgb 13.8 L (14.0-18.0) g/dL Hct 41.9 L (42.0-52.0) % MCV 92.5 (80.0-94.0) fL MCH 30.4 (27.0-31.0) pg MCHC 32.9 (32.0-36.0) g/dL RDW 13.9 (12.0-15.0) % Plt Count 266 (130-450) 10^3/uL MPV 8.6 (7.4-11.4) fL Neut # 3.2 (1.5-6.6) 10^3/uL Lymph # 1.5 (1.5-3.5) 10^3/uL [place] # 0.5 (0.0-1.0) 10^3/uL Eos # 0.2 (0.0-0.7) 10^3/uL Baso # 0.0 (0.0-0.1) 10^3/uL Absolute Nucleated RBC 0.00 x10^3/uL Nucleated RBC % 0.1 /100WBC ESR (0-15) mm/Hr Sodium (135-145) mmol/L Potassium (3.5-5.0) mmol/L Chloride (101-111) mmol/L Carbon Dioxide (21-32) mmol/L Anion Gap (6-13) BUN (6-20) mg/dL Creatinine (0.6-1.2) mg/dL Estimated GFR (MDRD) (>89) Glucose (70-100) mg/dL Calcium (8.5-10.3) mg/dL Total Bilirubin (0.2-1.0) mg/dL AST (10-42) IU/L ALT (10-60) IU/L Alkaline Phosphatase (42-121) IU/L C-Reactive Protein (0-1.0) mg/dL Total Protein (6.7-8.2) g/dL Albumin (3.2-5.5) g/dL Globulin (2.1-4.2) g/dL Albumin/Globulin Ratio (1.0-2.2) Last Dose Date 03/15/18 Last Dose Time 1628 Vancomycin Trough 17.8 H (5.0-15.0) ug/mL ABX Reporting Has patient been on IV antibiotics over the past 48 hours?: Yes Assessment/Plan - Problem List (1) Hand abscess Impression: Impression: the dressing was changed by surgeon. Surgeon recommend staying another day, and continue to IV antibiotics pt denies fever, chill, CP, SOB. continue lab and vital monitor Pt report he feel better, pain is good controlled, WBC is in the normal arrange. continue antibiotics treatment follow up sensitivity study continue IVF, and pain control orthopedics did I/D for pt and wound culture, follow up blood culture Unsyn Vancomycin IVF pain control (2) Cigarette smoker Conclusion/Plan: Nicotine patch consult and advise pt quit cigarette smoking (3) Illicit drug use Conclusion/Plan: pt report he is current using methamphetamine UDS consult and advise pt quit Pt denies alcohol issue with pt, continue support.
[2018-03-16] MEDS: LORazepam 2 MG/ML VIAL IVP PRN ×2 (15:00→21:29)
[2018-03-16] MEDS: NICOTINE 14 MG PATCH TOP SCH (17:44)
[2018-03-17] MEDS: ACETAMINOPHEN 325 MG TABLET PO PRN (00:36)
[2018-03-17] MEDS: SODIUM CHLORIDE FLUSH 0.9% 10 ML SYRINGE IVP SCH ×2 (00:36→08:06)
[2018-03-17] MEDS: LORazepam 2 MG/ML VIAL IVP PRN ×2 (00:36→05:39)
[2018-03-17] MEDS: AMPICILLIN/SULBACTAM 3 GM in SODIUM CHLORIDE 0.9% MINIBAG 100 ML IV SCH ×2 (01:53→08:03)
[2018-03-17] MEDS: KETOROLAC 15 MG/ML VIAL IVP PRN (05:00)
[2018-03-17 05:52] LABS: BASOPHILS % (AUTO) 0.7 %; EOSINOPHILS # (AUTO) 0.2 10^3/uL (0.0-0.7); LYMPHOCYTES # (AUTO) 2.1 10^3/uL (1.5-3.5); LYMPHOCYTES % (AUTO) 34.5 %; MEAN CORPUSCULAR HEMOGLOBIN 30.6 pg (27.0-31.0); MEAN CORPUSCULAR HGB CONC 33.1 g/dL (32.0-36.0); MEAN CORPUSCULAR VOLUME 92.7 fL (80.0-94.0); MEAN PLATELET VOLUME 8.1 fL (7.4-11.4); MONOCYTES # (AUTO) 0.6 10^3/uL (0.0-1.0); MONOCYTES % (AUTO) 9.4 %; NEUTROPHILS # (AUTO) 3.1 10^3/uL (1.5-6.6); NEUTROPHILS % (AUTO) 51.4 %; PLT - PLATELET COUNT 275 10^3/uL (130-450); RED BLOOD COUNT 4.59 10^6/uL (4.70-6.10); RED CELL DISTRIBUTION WIDTH 13.8 % (12.0-15.0)
[2018-03-17 06:06] LABS: ALBUMIN 3.2 g/dL (3.2-5.5); ALBUMIN/GLOBULIN RATIO 1.2 (1.0-2.2); BILIRUBIN,TOTAL 0.5 mg/dL (0.2-1.0); CALCIUM 8.2 mg/dL (8.5-10.3); CREATININE 0.7 mg/dL (0.6-1.2); TOTAL PROTEIN 5.8 g/dL (6.7-8.2)
[2018-03-17] MEDS ORDERED: POTASSIUM CHLORIDE 20 MEQ TABLET PO SCH (07:27)
[2018-03-17] MEDS: SODIUM CHLORIDE 0.9% 1,000 ML IV SCH (08:03)
[2018-03-17] MEDS: POLYETHYLENE GLYCOL 3350 17 GM PACKET PO SCH (08:06)
[2018-03-17] MEDS: FAMOTIDINE 20 MG TABLET PO SCH (08:06)
[2018-03-17 08:07] VITALS: BP 124/79
--- NOTE | 2018-03-17 11:27 | PROVIDER PROGRESS NOTE ---
Subjective - General Admit Date: 03/14/18 Procedure Date: 03/14/18 Post Op Days: 3 Procedure Performed: I and D left middle finger - Review of Systems Wound/Incisions: positive: Dressing dry and intact, Other (moist from shower) Functional Status: positive: 1, 2, 3, 4 General: positive: Other (minimal pain) Musculoskeletal: positive: Other (Minimal 3rd tip swelling. Normal sensation, good cap refill) Objective - Patient Data Vital Signs: Vital Signs x48h Temp Pulse Resp BP Pulse Ox 03/17/18 08:00 36.4 C L 78 18 124/79 95 Intake & Output: Intake and Output Totals x24h 03/15/18 03/16/18 03/17/18 23:59 23:59 23:59 Intake Total 3640.333 4629.667 1811.667 Output Total 150 Balance 3640.333 4479.667 1811.667 - Lab Results Lab Results: 03/17/18 05:32 03/17/18 05:32 Other Lab Results: Lab Results x24hrs 03/17/18 03/17/18 03/16/18 Range/Units 05:32 05:32 11:16 WBC 6.0 (4.8-10.8) x10^3/uL RBC 4.59 L (4.70-6.10) 10^6/uL Hgb 14.0 (14.0-18.0) g/dL Hct 42.5 (42.0-52.0) % MCV 92.7 (80.0-94.0) fL MCH 30.6 (27.0-31.0) pg MCHC 33.1 (32.0-36.0) g/dL RDW 13.8 (12.0-15.0) % Plt Count 275 (130-450) 10^3/uL MPV 8.1 (7.4-11.4) fL Neut # 3.1 (1.5-6.6) 10^3/uL Lymph # 2.1 (1.5-3.5) 10^3/uL [place] # 0.6 (0.0-1.0) 10^3/uL Eos # 0.2 (0.0-0.7) 10^3/uL Baso # 0.0 (0.0-0.1) 10^3/uL Absolute Nucleated RBC 0.00 x10^3/uL Nucleated RBC % 0.1 /100WBC ESR (0-15) mm/Hr Sodium 138 (135-145) mmol/L Potassium 3.4 L (3.5-5.0) mmol/L Chloride 103 (101-111) mmol/L Carbon Dioxide 28 (21-32) mmol/L Anion Gap 7.0 (6-13) BUN 14 (6-20) mg/dL Creatinine 0.7 (0.6-1.2) mg/dL Estimated GFR (MDRD) 121 (>89) Glucose 96 (70-100) mg/dL Calcium 8.2 L (8.5-10.3) mg/dL Total Bilirubin 0.5 (0.2-1.0) mg/dL AST 17 (10-42) IU/L ALT 14 (10-60) IU/L Alkaline Phosphatase 53 (42-121) IU/L C-Reactive Protein < 1.0 (0-1.0) mg/dL Total Protein 5.8 L (6.7-8.2) g/dL Albumin 3.2 (3.2-5.5) g/dL Globulin 2.6 (2.1-4.2) g/dL Albumin/Globulin Ratio 1.2 (1.0-2.2) 05//18 Range/Units 11:16 WBC (4.8-10.8) x10^3/uL RBC (4.70-6.10) 10^6/uL Hgb (14.0-18.0) g/dL Hct (42.0-52.0) % MCV (80.0-94.0) fL MCH (27.0-31.0) pg MCHC (32.0-36.0) g/dL RDW (12.0-15.0) % Plt Count (130-450) 10^3/uL MPV (7.4-11.4) fL Neut # (1.5-6.6) 10^3/uL Lymph # (1.5-3.5) 10^3/uL [place] # (0.0-1.0) 10^3/uL Eos # (0.0-0.7) 10^3/uL Baso # (0.0-0.1) 10^3/uL Absolute Nucleated RBC x10^3/uL Nucleated RBC % /100WBC ESR 4 (0-15) mm/Hr Sodium (135-145) mmol/L Potassium (3.5-5.0) mmol/L Chloride (101-111) mmol/L Carbon Dioxide (21-32) mmol/L Anion Gap (6-13) BUN (6-20) mg/dL Creatinine (0.6-1.2) mg/dL Estimated GFR (MDRD) (>89) Glucose (70-100) mg/dL Calcium (8.5-10.3) mg/dL Total Bilirubin (0.2-1.0) mg/dL AST (10-42) IU/L ALT (10-60) IU/L Alkaline Phosphatase (42-121) IU/L C-Reactive Protein (0-1.0) mg/dL Total Protein (6.7-8.2) g/dL Albumin (3.2-5.5) g/dL Globulin (2.1-4.2) g/dL Albumin/Globulin Ratio (1.0-2.2) - Current Medications Current Medications: Current Medications Generic Name Dose Route Start Last Admin Trade Name Freq PRN Reason Stop Dose Admin Acetaminophen 650 mg 03/14/18 15:53 03/17/18 00:36 Tylenol PO 650 mg Q4HR PRN Administration Pain 1 to 4 Famotidine 20 mg 03/15/18 09:00 03/17/18 08:06 Pepcid PO 20 mg DAILY MORA Administration Sodium Chloride 1,000 mls @ 100 mls/hr 03/14/18 16:00 03/17/18 08:52 Normal Saline 0.9% IV 100 mls/hr .Q10H MORA Infusion Ampicillin Sodium/Sulbactam 100 mls @ 200 mls/hr 03/14/18 20:00 03/17/18 08: 51 Sodium 3 gm/ Sodium Chloride IV Infused Q6H MORA Infusion Ketorolac Tromethamine 15 mg 03/15/18 19:39 03/17/18 05:00 Toradol Inj IVP 03/20/18 13:59 15 mg Q6H PRN Administration PAIN Lorazepam 0.5 mg 03/14/18 17:46 03/17/18 05:39 Ativan Inj (Vial) IVP 0.5 mg Q2H PRN Administration Anxiety Morphine Sulfate 2 mg 03/14/18 15:53 03/15/18 18:34 Morphine IVP 2 mg Q2H PRN Administration Pain 8 to 10 Nicotine 1 patch 03/14/18 18:00 03/16/18 17:44 Nicoderm TOP 1 patch Q24H MORA Administration Polyethylene Glycol 17 gm 03/15/18 09:00 03/17/18 08:06 Miralax PO 17 gm DAILY MORA Administration Sodium Chloride 10 ml 03/14/18 15:53 03/16/18 21:29 Normal Saline Flush 0.9% IVP 10 ml PRN PRN Administration NEEDED PER PROVIDER ORDERS Sodium Chloride 10 ml 03/14/18 17:00 03/17/18 08:06 Normal Saline Flush 0.9% IVP Not Given 0100,0900,1700 MORA - Physical Exam Wound/Incisions: positive: Drainage (minimal but very tender), Erythema improving, Other Comments/Other: ESR 4, CRP < 1 Impression/Plan - Problem List Problem List: Infection resolving MSSA and strep by culture OK for DC on Keflex f/u in Ortho office in 10 days Pt has been instructed in dressing changes qod
--- NOTE | 2018-03-17 11:31 | Discharge Plan ---
Discharge Plan Disposition: 01 Home, Self Care Condition: Stable Prescriptions: Cephalexin [Keflex] 500 mg PO BID #20 capsule oxyCODONE [Roxicodone] 5 mg PO Q4-6H PRN #20 tablet PRN Reason: Pain Diet: Regular Activity Restrictions: Activity as Tolerated Shower Restrictions: No (hand infection prevention) Weight Bearing: Full Weight Instruction Topics: Cephalexin tablets or capsules, Oxycodone tablets or capsules, Dressing Change Dc Additional Instructions or Follow Up instructions: You may follow up your PCP in 1-2 weeks, follow up nurse instruction for dressing change, follow up Dr. Rioc in two weeks. Should your symptoms return or worsen, you may present at ER or call 911 for help. No Smoking: If you smoke, Please STOP! Call for help.
--- NOTE | 2018-03-17 11:39 | DISCHARGE SUMMARY ---
"Discharge Summary Discharge Date: 03/17/18 Discharging Provider: GÓMEZ Condition at Discharge: Stable Discharge Disposition: Home, Self Care Discharge Facility Name: home/original tent - DIAGNOSES Admission Diagnoses: (1) Hand abscess (2) Cigarette smoker (3) Illicit drug use Discharge Diagnoses with Status of Each Condition: (1) Hand abscess no fever, chill, WBC became normal arrange. blood culture was negative. would culture reveals positive MSSA. pt is prescribe Keflex and pain medication. pt is instructed how to change his dressing by nurse, dressing change q another day. Pt reported he has helper to help him change his dressing. Pt was seen and released by orthopedics. pt is advised to follow up orthopedics in 10 days to two weeks (2) Cigarette smoker advise pt quit smoking (3) Illicit drug use advise pt quit illicit drug usage - HPI History of Present Illness: Mr. Lassiter is 47-yrs-old male, unfortunately homeless, with a PMH significant for cigarette smoker, illicit drug methamphetamine abuse, who present ER complaint of left hand infection. Pt report he had a tiny scrape on his left middle finger 3-4 days, then the site rapidly developed significant swelling and very painful. Pt denies fever, chill. Xray reveals soft tissue swelling of the middle finger without additional abnormality. Orthopedics was consulted in ER. Dr. Rico then did I/D for pt. Pt report he smokes 6-7 cigarettes daily, also he report he still smokes Methamphetamine. Lab test ER reveals slight elevated WBC, otherwise is unremarkable. Pt is admitted for treatment of hand infection. - CONSULTS | PROCEDURES Consultations: Dr. Rico Procedures: I/D for left hand abscess. - ALLERGIES Allergies/Adverse Reactions: Allergies Allergy/AdvReac Type Severity Reaction Status Date / Time No Known Drug Allergies Allergy Verified 06/17/17 12:19 - MEDICATIONS Home Medications: Ambulatory Orders Medication Instructions Recorded Confirmed Cephalexin [Keflex] 500 mg PO BID #20 capsule 03/17/18 oxyCODONE [Roxicodone] 5 mg PO Q4-6H PRN #20 tablet 03/17/18 - PHYSICAL EXAM AT DISCHARGE General Appearance: positive: No acute distress, Alert. negative: Lethargic Eyes Bilateral: positive: Normal inspection, PERRL, No lid inflammation, Conjunctivae nml ENT: positive: ENT inspection nml, Pharynx nml, No signs of dehydration. negative: Purulent nasal drainage, Pharyngeal erythema, Oral lesions Neck: positive: Nml inspection, Thyroid nml, No JVD, Trachea midline. negative : Thyromegaly, Lymphadenopathy (R), Lymphadenopathy (L), Stiff neck, Carotid bruit, Swelling/bruising, Tracheal deviation Respiratory: positive: Chest non-tender, No respiratory distress, Breath sounds nml. negative: Wheezes, Rales, Rhonchi Cardiovascular: positive: Regular rate & rhythm, No murmur, No gallop. negative : Irregularly irregular, Extrasystoles, Tachycardia, Bradycardia, JVD present, Systolic murmur, Diastolic murmur Peripheral Pulses: positive: 2+ Abdomen: positive: Non-tender, No organomegaly, Nml bowel sounds, No distention. negative: Tenderness, Guarding, Rebound Back: positive: Nml inspection. negative: CVA tenderness (R), CVA tenderness (L ) Skin: positive: Color nml, No rash, Warm, Dry. negative: Cyanosis, Diaphoresis , Pallor Extremities: positive: Non-tender, Full ROM, Nml appearance. negative: Calf tenderness, Joint swelling, Kristi's sign/cords Neurologic/Psychiatric: positive: Oriented x3, Motor nml, Sensation nml. negative: Weakness, Sensory loss, Facial droop, Slurred/abnml speech, Depressed mood/affect - LABS Result Diagrams: 03/17/18 05:32 03/17/18 05:32 - FOLLOW UP Follow Up: You may follow up your PCP in 1-2 weeks, follow up nurse instruction for dressing change, follow up Dr. Rico in two weeks. Should your symptoms return or worsen, you may present at ER or call 911 for help. - TIME SPENT Time Spent in Discharge (Minutes): 45"
== END 2018-03-17 12:33 | disposition home or self-care (01) | DRG 603 ==
LOC: ED 14:13 → MS2 15:53
PROVIDERS: ADMIT Nurse Practitioner Gerontology; ATTEND Nurse Practitioner Gerontology
DX: L02.512 Cutaneous abscess of left hand (principal); F15.20 Other stimulant dependence, uncomplicated; B95.61 Methicillin susceptible Staphylococcus aureus infection as the cause of diseases classified elsewhere; B95.5 Unspecified streptococcus as the cause of diseases classified elsewhere; F17.210 Nicotine dependence, cigarettes, uncomplicated; Z59.0 Homelessness
CPT/HCPCS: 10061; 36415; 80048; 80053; 80306; 83735; 85025; 85651; 86140; 87040; 87070; 87181; 87205; 96365; 96367; 96375; 96376; 99283; 99284

== ENCOUNTER 2018-04-01 17:58 | Emergency (ER) | payer MEDICAID ==
[2018-04-01 18:25] VITALS: BP 119/61
--- NOTE | 2018-04-01 19:53 | ED Physician Documentation ---
PD HPI HEENT - Stated complaint Stated Complaint: TOOTH AND L EAR PX - Chief complaint Chief Complaint: Heent - History obtained from History obtained from: Patient - History of Present Illness Timing - onset: How many days ago (few) Timing - duration: Days Timing - details: Gradual onset, Still present Location: Tooth (left lower molar broke and is hurting, with some gum swelling. No drainage. Also wants finger checked, was in hospital for infection recently and says it is still somewhat red but not worsening.) Worsens: Temperatures, Everything Associated symptoms: No: Fever, Congestion, Trismus Similar symptoms before: Has not had sx before Recently seen: Admitted (for finger infection and was in hospital for 4 days. He says still some redness but not worsening.) Review of Systems Constitutional: denies: Fever, Chills Throat: reports: Dental pain / toothache. denies: Sore throat Cardiac: denies: Chest pain / pressure Respiratory: denies: Cough GI: reports: Diarrhea. denies: Abdominal Pain, Nausea, Vomiting Psychiatric: reports: Anxiety, Insomnia. denies: Depressed PD PAST MEDICAL HISTORY - Past Medical History Past Medical History: Yes Psych: Anxiety, Schizophrenia - Past Surgical History Past Surgical History: Yes Ortho: Spine surgery - Present Medications Home Medications: Ambulatory Orders Medication Instructions Recorded Confirmed Doxycycline Monohydrate 100 mg PO BID #14 tablet 04/01/18 HYDROcod/ACETAM 5/325 [[place] 5/325] 1 tab PO Q6H PRN #15 tablet 04/01/18 Lorazepam [Ativan] 1 mg PO BID #12 tablet 04/01/18 Mupirocin 1 applic TP TID #15 oint...g. 04/01/18 Naproxen 375 mg PO BID #20 tablet 04/01/18 - Allergies Allergies/Adverse Reactions: Allergies Allergy/AdvReac Type Severity Reaction Status Date / Time No Known Drug Allergies Allergy Verified 04/01/18 19:44 - Social History Does the pt smoke?: Yes Smoking Status: Current every day smoker Does the pt drink ETOH?: Yes Does the pt have substance abuse?: Yes - Immunizations Immunizations are current?: No Immunizations: TDAP >10years/unknown - POLST Patient has POLST: No POLST Status: Full Code PD ED PE NORMAL - Vitals Vital signs reviewed: Yes - General General: Alert and oriented X 3, Well developed/nourished - HEENT HEENT: Pharynx benign. No: Dentition benign (left lower back molar with broken and half gone. Not amenable shape for temp filling. Some swelling of gum. Mild left anterior adenopathy. ) - Neck Neck: Supple, no meningeal sign, Other (mild nodes left) - Cardiac Cardiac: RRR, No murmur - Respiratory Respiratory: Clear bilaterally - Derm Derm: Other (right middle finger with some redness, no discharge. ) - Neuro Neuro: Alert and oriented X 3, No motor deficit, Normal speech - Psych Psych: No: Normal affect (somewhat anxious but not shaky. Pleasant and talkative. ) Results - Vitals Vitals: Vital Signs - 24 hr 04/01/18 18:23 Temperature 36.5 C Heart Rate 108 H Respiratory 24 Rate Blood Pressure 119/61 O2 Saturation 97 Oxygen O2 Source Room air PD MEDICAL DECISION MAKING - ED course Complexity details: considered differential (he says his anxiety is way up with recent finger infection and now tooth. Asks for short term Lorazepam until sees PCP.), d/w patient Departure - Departure Disposition: Home, Self Care Clinical Impression: Encounter for wound re-check, Infected dental caries, Anxiety Condition: Stable Record reviewed to determine appropriate education?: Yes Instructions: ED Cavity Dental Follow-Up: [facility] [Provider Group] [facility] [Provider Group] Prescriptions: Doxycycline Monohydrate 100 mg PO BID #14 tablet HYDROcod/ACETAM 5/325 [[place] 5/325] 1 tab PO Q6H PRN #15 tablet PRN Reason: Pain Lorazepam [Ativan] 1 mg PO BID #12 tablet Mupirocin 1 applic TP TID #15 oint...g. Naproxen 375 mg PO BID #20 tablet Comments: For the finger infection, clean it with soap and water twice daily and apply mupirocin antibiotic ointment. Gentle range of motion and use to reduce stiffness. For the tooth, use doxycycline antibiotic for the infection and this will help with the finger as well. Use naproxen twice daily anti-inflammatory. Add Tylenol or hydrocodone if needed for pain. Follow-up with your primary care if the fingers not improving or the tooth is not improving. Follow-up with a dentist for more definitive care of the tooth. [place] for an appointment. Alternatively there is a clinic up in [place] that takes all insurances called [facility] he can call them for an appointment as well. They may have a clinic for dental in [place] as well. For the anxiety use Lorazepam once or twice daily as needed in the short-term. Follow-up with your primary care regarding more long-term treatment for anxiety. Discharge Date/Time: 04/01/18 21:00
[2018-04-01] MEDS ORDERED: DOXYCYCLINE 100 MG TABLET PO STA (20:10)
[2018-04-01] MEDS ORDERED: HYDROcod/ACETAM 5/325 MG TABLET PO STA (20:10)
[2018-04-01] MEDS ORDERED: LORazepam 0.5 MG TABLET PO STA (20:10)
[2018-04-01] MEDS ORDERED: NAPROXEN 250 MG TABLET PO STA (20:10)
== END 2018-04-01 21:00 | disposition home or self-care (01) ==
LOC: ED 17:58
DX: L08.9 Local infection of the skin and subcutaneous tissue, unspecified (principal); K02.9 Dental caries, unspecified; K04.7 Periapical abscess without sinus; F41.9 Anxiety disorder, unspecified; S02.5XXA Fracture of tooth (traumatic), initial encounter for closed fracture; X58.XXXA Exposure to other specified factors, initial encounter; F17.200 Nicotine dependence, unspecified, uncomplicated
CPT/HCPCS: 99283; A9270

== ENCOUNTER 2018-08-20 12:49 | Emergency (ER) | payer MEDICAID ==
--- NOTE | 2018-08-20 13:43 | ED Physician Documentation ---
PD HPI HEENT - Stated complaint Stated Complaint: TOOTH PX - Chief complaint Chief Complaint: Heent - History obtained from History obtained from: Patient - History of Present Illness Timing - onset: How many days ago (2-3) Timing - duration: Days (2-3 days of right upper tooth pain with local swelling. Also having trouble with anxiety and some auditory hallucinations. [facility] a [facility], so no recent drug use but was on meth and alcohol prior. 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 Patient says the voices are still notable and trouble sleeping. Requesting Lorazepam. Also requesting mental health referral. He is connected with [facility] in [place], getting connected for inpatient drug rehab, but won't have open bed until likely next week.) Timing - details: Gradual onset Location: Tooth Worsens: Swalllowing, Temperatures Associated symptoms: No: Fever, Congestion, Facial swelling, Headache Similar symptoms before: Diagnosis (dental infections) Recently seen: Other (he was seen and treated with new Rxs while in [facility], just released couple days ago.) Review of Systems Constitutional: denies: Fever, Chills, Myalgias Nose: denies: Rhinorrhea / runny nose, Congestion Throat: reports: Dental pain / toothache. denies: Oral lesions / sores, Sore throat Cardiac: denies: Chest pain / pressure Respiratory: denies: Dyspnea, Cough GI: denies: Abdominal Pain, Vomiting, Diarrhea Skin: denies: Rash, Lesions Psychiatric: reports: Depressed, Hallucinations, Anxiety, Insomnia. denies: Suicidal, Homicidal, Delusions Immunocompromised: denies: Immunocompromised PD PAST MEDICAL HISTORY - Past Medical History Cardiovascular: None Respiratory: None Psych: Anxiety, Bipolar disorder Musculoskeletal: None - Past Surgical History Past Surgical History: Yes Ortho: Spine surgery - Present Medications Home Medications: Ambulatory Orders Medication Instructions Recorded Confirmed Citalopram [CeleXA] 10 mg 08/20/18 Doxycycline Monohydrate 100 mg PO BID #14 tablet 08/20/18 HYDROcod/ACETAM 5/325 [[place] 5/325] 1 tab PO Q6H PRN #15 tablet 08/20/18 Naproxen 375 mg PO BID #20 tablet 08/20/18 OLANZapine [Zyprexa] 5 mg PO BID #20 tablet 08/20/18 busPIRone [Buspar] 5 mg PO BID 08/20/18 08/20/18 hydrOXYzine HCl [Hydroxyzine HCl] 10 mg PO 08/20/18 - Allergies Allergies/Adverse Reactions: Allergies Allergy/AdvReac Type Severity Reaction Status Date / Time No Known Drug Allergies Allergy Verified 08/20/18 13:00 - Social History Does the pt smoke?: Yes Smoking Status: Current every day smoker Does the pt drink ETOH?: Yes Does the pt have substance abuse?: Yes - Immunizations Immunizations are current?: No Immunizations: TDAP >10years/unknown - POLST Patient has POLST: No POLST Status: Full Code PD ED PE NORMAL - Vitals Vital signs reviewed: Yes - General General: Alert and oriented X 3, No acute distress, Well developed/nourished - HEENT HEENT: Ears normal, Pharynx benign, Other (right upper tooth with decay and local gum swelling. There is decay of most of the teeth. No obvious facial swelling. ) - Neck Neck: Supple, no meningeal sign, No adenopathy - Cardiac Cardiac: RRR, No murmur - Respiratory Respiratory: Clear bilaterally - Abdomen Abdomen: Soft, Non tender - Derm Derm: Normal color, Warm and dry - Neuro Neuro: Alert and oriented X 3, No motor deficit, Normal speech - Psych Psych: Normal mood. No: Normal affect (slightly anxious. Denies suicidal ideation.) Results - Vitals Vitals: Vital Signs - 24 hr 08/20/18 08/20/18 12:57 14:43 Temperature 37 C Heart Rate 89 88 Respiratory 18 18 Rate Blood Pressure 111/66 112/64 O2 Saturation 98 98 Oxygen O2 Source Room air PD MEDICAL DECISION MAKING - ED course Complexity details: reviewed old records, considered differential, d/w patient Departure - Departure Disposition: 01 Home, Self Care Clinical Impression: Infected dental carries, Substance abuse in remission Schizoaffective disorder Qualifiers: Schizoaffective disorder type: unspecified Qualified Code(s): F25.9 - Schizoaffective disorder, unspecified Condition: Stable Record reviewed to determine appropriate education?: Yes Instructions: ED Abscess Dental Follow-Up: [facility] [Provider Group] [facility] [Provider Group] [facility] [Provider Group] Prescriptions: Doxycycline Monohydrate 100 mg PO BID #14 tablet HYDROcod/ACETAM 5/325 [[place] 5/325] 1 tab PO Q6H PRN #15 tablet PRN Reason: Pain Naproxen 375 mg PO BID #20 tablet OLANZapine [Zyprexa] 5 mg PO BID #20 tablet Comments: The [facility] clinic actually does psychiatric care as well as the substance abuse so he could follow-up with them regarding evaluation for mental health as well. Alternatively you could contact [facility]. Continue with the outpatient or inpatient substance abuse treatment planned. I would continue the BuSpar and Celexa medications. You could hold on the hydroxyzine as that might be causing some of your blurred vision. Add Zyprexa twice daily to help with anxiety as well as some of the voices. Follow-up with [facility] or [facility] regarding further evaluation and adjustment of medications. Regarding your dental infection, use naproxen twice daily for the next 7-10 days. Add hydrocodone if needed for pain and doxycycline antibiotic for a week. Follow-up with a dentist regarding more definitive care of the tooth cavities. [facility] dental clinic in [place] would be her best option. Call for an appointment. You will also want primary care and you could make an appointment with the [facility] community clinic. Discharge Date/Time: 08/20/18 14:43
[2018-08-20] MEDS ORDERED: IBUPROFEN 600 MG TABLET PO STA (14:07)
[2018-08-20] MEDS ORDERED: OLANZapine ODT 5 MG TABLET TL ONE (14:07)
[2018-08-20] MEDS ORDERED: HYDROcod/ACETAM 5/325 MG TABLET PO STA (14:07)
[2018-08-20] MEDS ORDERED: DOXYCYCLINE 100 MG TABLET PO STA (14:07)
[2018-08-20 14:44] VITALS: BP 112/64
== END 2018-08-20 14:43 | disposition home or self-care (01) ==
LOC: ED 12:49
DX: K02.9 Dental caries, unspecified (principal); F25.9 Schizoaffective disorder, unspecified; F17.200 Nicotine dependence, unspecified, uncomplicated
CPT/HCPCS: 99283; A9270

== ENCOUNTER 2019-09-23 13:16 | Emergency (ER) | payer MEDICAID ==
[2019-09-23 13:35] VITALS: BP 117/96
--- NOTE | 2019-09-23 16:29 | ED Physician Documentation ---
PD HPI SKIN - Stated complaint Stated Complaint: RT HAND PX - Chief complaint Chief Complaint: Wound - History obtained from History obtained from: Patient - History of Present Illness Timing - onset: How many days ago (2-3) Timing - duration: Days (2-3) Timing - details: Gradual onset, Still present Location: RUE (dorsum right hand, without noted injury nor FB.) Quality / character: Painful, Discolored (red), Swelling. No: Draining (had a pointing white spot in center.) Associated symptoms: No: Fever, Myalgias, N/V/D Contributing factors: No: Insect bite /sting Similar symptoms before: Has not had sx before Review of Systems Constitutional: denies: Fever, Chills, Myalgias GI: denies: Nausea, Vomiting, Diarrhea PD PAST MEDICAL HISTORY - Past Medical History Cardiovascular: None Respiratory: None Psych: Anxiety, Bipolar disorder Musculoskeletal: None - Past Surgical History Past Surgical History: Yes Ortho: Spine surgery - Present Medications Home Medications: Ambulatory Orders Medication Instructions Recorded Confirmed Citalopram [CeleXA] 10 mg 08/20/18 Doxycycline Monohydrate 100 mg PO BID #14 tablet 08/20/18 HYDROcod/ACETAM 5/325 [[place] 5/325] 1 tab PO Q6H PRN #15 tablet 08/20/18 Naproxen 375 mg PO BID #20 tablet 08/20/18 OLANZapine [Zyprexa] 5 mg PO BID #20 tablet 08/20/18 busPIRone [Buspar] 5 mg PO BID 08/20/18 08/20/18 hydrOXYzine HCl [Hydroxyzine HCl] 10 mg PO 08/20/18 Doxycycline Monohydrate 100 mg PO BID #14 tablet 09/23/19 Hydrocodone/Acetaminophen 1 - 2 each PO Q6H PRN #14 tablet 09/23/19 [Hydrocodon-Acetaminophen 5-325] Ibuprofen [Motrin] 600 mg PO TID PRN #25 tab 09/23/19 - Allergies Allergies/Adverse Reactions: Allergies Allergy/AdvReac Type Severity Reaction Status Date / Time No Known Drug Allergies Allergy Verified 09/23/19 13:34 - Social History Does the pt smoke?: Yes Smoking Status: Current every day smoker Does the pt drink ETOH?: Yes Does the pt have substance abuse?: Yes - Immunizations Immunizations are current?: No Immunizations: TDAP >10years/unknown - POLST Patient has POLST: No POLST Status: Full Code PD ED PE NORMAL - Vitals Vital signs reviewed: Yes - General General: Alert and oriented X 3, No acute distress, Well developed/nourished - Derm Derm: Normal color, Warm and dry - Extremities Extremities: Other (dorsum of right hand with redness and swelling, with 1-2 cm area of mild fluctuance and white pointing spot 2-3 mm in center. No drainage. Able to fully extend fingers without pain. No tenderness in forearm. ) - Neuro Neuro: Alert and oriented X 3, No motor deficit, No sensory deficit, Normal speech Results - Vitals Vitals: Vital Signs - 24 hr 09/23/19 13:31 Temperature 36.8 C Heart Rate 97 Respiratory 16 Rate Blood Pressure 117/96 H O2 Saturation 98 Oxygen O2 Source Room air Procedures - Abscess I&D (location) dorsum hand Preparation: Lidocaine 1%, With epi Incision: Incised with scalpel, Purulent drainage (small amount, just several drops), Irrigated, Culture obtained Other: Pt tolerated well, Antibiotic prescribed PD MEDICAL DECISION MAKING - ED course Complexity details: considered differential (He has a small pointing abscess on the dorsum of the hand with surrounding cellulitis. There is some localized swelling which causes limitation on flexion. He has full extension of the fingers without any pain against resistance and there is no forearm tenderness. Seems to be localized at the skin level and no signs of tendon involvement.), d/w patient Departure - Departure Disposition: 01 Home, Self Care Clinical Impression: Abscess of right hand excluding fingers and thumb Condition: Stable Record reviewed to determine appropriate education?: Yes Instructions: ED Abscess IandD Prescriptions: Doxycycline Monohydrate 100 mg PO BID #14 tablet Hydrocodone/Acetaminophen [Hydrocodon-Acetaminophen 5-325] 1 - 2 each PO Q6H PRN #14 tablet PRN Reason: pain Ibuprofen [Motrin] 600 mg PO TID PRN #25 tab PRN Reason: Pain Comments: Warm moist towels or soaks for the hand to help promote drainage from the opening. Elevate and rest the hand often to reduce swelling. Anti-inflammatories of ibuprofen 3 times a day for pain and swelling. Add Tylenol or hydrocodone as needed for pain. Doxycycline antibiotic twice daily for a week. Recheck if not improving well over the next few days and return sooner if worsening. Discharge Date/Time: 09/23/19 17:13
[2019-09-23] MEDS ORDERED: LIDOCAINE MPF 1%-EPI 1:200000 30 ML VIAL SUBQ STA (16:31)
[2019-09-23] MEDS ORDERED: HYDROcod/ACETAM 5/325 MG TABLET PO STA (16:37)
[2019-09-23] MEDS ORDERED: DOXYCYCLINE 100 MG TABLET PO STA (16:37)
[2019-09-23] MEDS ORDERED: IBUPROFEN 600 MG TABLET PO STA (16:37)
== END 2019-09-23 17:13 | disposition home or self-care (01) ==
LOC: ED 13:16
DX: L02.511 Cutaneous abscess of right hand (principal); L03.113 Cellulitis of right upper limb; F17.200 Nicotine dependence, unspecified, uncomplicated
CPT/HCPCS: 10060; 99283; A9270

== ENCOUNTER 2019-12-10 12:17 | Emergency (ER) | payer MEDICAID ==
[2019-12-10 12:22] VITALS: BP 130/102
[2019-12-10] MEDS ORDERED: HYDROcod/ACETAM 5/325 MG TABLET PO STA (12:54)
[2019-12-10] MEDS ORDERED: CLINDAMYCIN 150 MG CAPSULE PO STA (12:54)
[2019-12-10] MEDS ORDERED: BUFFERED LIDOCAINE 10 ML SYRINGE SUBQ STA (12:55)
--- NOTE | 2019-12-10 12:57 | ED Physician Documentation ---
PD HPI SKIN - Stated complaint Stated Complaint: M - Chief complaint Chief Complaint: Wound - History obtained from History obtained from: Patient (Pretty healthy 49-year-old gentleman has had a several day history of a painful although not severely painful lesion in the left side of the groin with some drainage. He has a history of staph but not MRSA. No fevers or chills.) Review of Systems Constitutional: denies: Fever, Chills Nose: denies: Rhinorrhea / runny nose, Congestion Cardiac: denies: Chest pain / pressure Respiratory: denies: Dyspnea, Cough PD PAST MEDICAL HISTORY - Past Medical History Past Medical History: Yes Cardiovascular: None Respiratory: None Psych: Anxiety, Bipolar disorder Musculoskeletal: None - Past Surgical History Past Surgical History: Yes Ortho: Spine surgery - Present Medications Home Medications: Ambulatory Orders Medication Instructions Recorded Confirmed Clindamycin HCl [Clindamycin 300MG 300 mg PO Q6H #28 capsule 12/10/19 CAP] Hydrocodone/Acetaminophen 1 - 2 each PO Q6H PRN #10 tablet 12/10/19 [Hydrocodon-Acetaminophen 5-325] - Allergies Allergies/Adverse Reactions: Allergies Allergy/AdvReac Type Severity Reaction Status Date / Time No Known Drug Allergies Allergy Verified 12/10/19 12:21 - Social History Does the pt smoke?: Yes Smoking Status: Current every day smoker Does the pt drink ETOH?: Yes Does the pt have substance abuse?: Yes Substance Use and Type: Marijuana - Immunizations Immunizations are current?: No Immunizations: TDAP >10years/unknown - POLST Patient has POLST: No POLST Status: Full Code PD ED PE NORMAL - Vitals Vital signs reviewed: Yes - General General: Alert and oriented X 3, No acute distress - Abdomen Abdomen: Soft, Non tender - Male Male : Other (On the left side of the groin there is a pointed abscess measuring 2 to 3 cm, it is spontaneously draining although still fluctuance, a culture was taken during initial examination.) - Neuro Neuro: Alert and oriented X 3, Normal speech Results - Vitals Vitals: Vital Signs - 24 hr 12/10/19 12:18 Temperature 36.1 C L Heart Rate 101 H Respiratory 18 Rate Blood Pressure 130/102 H O2 Saturation 97 Oxygen O2 Source Room air Procedures - Abscess I&D (location) L groin Preparation: Chlorhexadine, Lidocaine 1% Incision: Incised with scalpel, Purulent drainage, Loculations broken, Culture obtained. No: Packed (too small) Other: Pt tolerated well, Dressing applied, Antibiotic prescribed Departure - Departure Disposition: 01 Home, Self Care Clinical Impression: Abscess Condition: Good Record reviewed to determine appropriate education?: Yes Instructions: ED Abscess IandD Prescriptions: Clindamycin HCl [Clindamycin 300MG CAP] 300 mg PO Q6H #28 capsule Hydrocodone/Acetaminophen [Hydrocodon-Acetaminophen 5-325] 1 - 2 each PO Q6H PRN #10 tablet PRN Reason: pain Comments: We are performing a wound culture, the results should be done in 48-72 hours. If antibiotic change is necessary we will call you. Return if worse in the meantime, especially if you develop increased pain, fevers, cannot keep down the medication. Otherwise follow-up with your physician in approximately 2-3 days[address] not drink or drive while taking narcotic pain medication. Note that many narcotic pain relievers also contain Tylenol/acetaminophen. Please ensure that your total dose of acetaminophen from all sources does not exceed 3 g (3000 mg) per day. You may get constipated while on this medication. Take a stool softener such as Colace twice a day while you are on it. Also add an [id number] laxative such as senna or MiraLAX on any day that you do not have a bowel movement. If you received a narcotic pain medication or sedative while in the emergency department, do not drive for the next 24 hours.
== END 2019-12-10 13:20 | disposition home or self-care (01) ==
LOC: ED 12:17
DX: L02.214 Cutaneous abscess of groin (principal); F17.200 Nicotine dependence, unspecified, uncomplicated
CPT/HCPCS: 10060; 87070; 87181; 87205; 99283; A9270

== ENCOUNTER 2019-12-23 09:54 | Emergency (ER) | payer MEDICAID ==
[2019-12-23 10:29] LABS: BASOPHILS % (AUTO) 0.8 %; EOSINOPHILS # (AUTO) 0.1 10^3/uL (0.0-0.7); EOSINOPHILS % (AUTO) 1.7 %; HGB - HEMOGLOBIN 15.6 g/dL (14.0-18.0); LYMPHOCYTES # (AUTO) 1.6 10^3/uL (1.5-3.5); LYMPHOCYTES % (AUTO) 30.9 %; MEAN CORPUSCULAR HEMOGLOBIN 31.6 pg (27.0-31.0); MEAN CORPUSCULAR HGB CONC 33.4 g/dL (32.0-36.0); MEAN CORPUSCULAR VOLUME 94.5 fL (80.0-94.0); MEAN PLATELET VOLUME 10.7 fL (7.4-11.4); MONOCYTES # (AUTO) 0.5 10^3/uL (0.0-1.0); MONOCYTES % (AUTO) 8.7 %; NEUTROPHILS % (AUTO) 57.7 %; PLT - PLATELET COUNT 335 10^3/uL (130-450); RED BLOOD COUNT 4.94 10^6/uL (4.70-6.10); RED CELL DISTRIBUTION WIDTH 13.2 % (12.0-15.0); WHITE BLOOD COUNT 5.2 x10^3/uL (4.8-10.8)
[2019-12-23 10:31] LABS: MUDS CUTOFF CONCENTRATIONS CUTOFF CONC BELOW:
[2019-12-23] MEDS ORDERED: OLANZapine ODT 5 MG TABLET TL ONE (10:36)
[2019-12-23] MEDS ORDERED: LORazepam 0.5 MG TABLET PO STA (10:37)
[2019-12-23 10:38] LABS: BILIRUBIN,URINE NEGATIVE (NEGATIVE); GLUCOSE, URINE (UA) NEGATIVE (NEGATIVE); KETONES,URINE (UA) NEGATIVE (NEGATIVE); LEUKOCYTE ESTERASE, URINE NEGATIVE (NEGATIVE); NITRITE,URINE NEGATIVE (NEGATIVE); OCCULT BLOOD,URINE NEGATIVE (NEGATIVE); PROTEIN,URINE NEGATIVE (NEGATIVE); UROBILINOGEN,URINE 0.2 (NORMAL) E.U./dL (NORMAL)
[2019-12-23 10:40] LABS: CLARITY,URINE CLEAR (CLEAR)
[2019-12-23 10:45] LABS: ACETAMINOPHEN < 10 ug/mL (10-30); ALBUMIN 4.1 g/dL (3.2-5.5); ALBUMIN/GLOBULIN RATIO 1.4 (1.0-2.2); ALKALINE PHOSPHATASE 67 IU/L (42-121); ALT ALANINE AMINOTRANSFERASE 23 IU/L (10-60); AST ASPARTATE AMINOTRANSFERASE 20 IU/L (10-42); BILIRUBIN,TOTAL 0.6 mg/dL (0.2-1.0); BUN - BLOOD UREA NITROGEN 11 mg/dL (6-20); CALCIUM 8.9 mg/dL (8.5-10.3); CARBON DIOXIDE - CO2 25 mmol/L (21-32); CHLORIDE 105 mmol/L (101-111); CREATININE 0.8 mg/dL (0.6-1.2); GFR - MDRD 103 (>89); GLUCOSE 91 mg/dL (70-100); LIPASE 39 U/L (22-51); SALICYLATE < 6.0 mg/dL; SODIUM 140 mmol/L (135-145)
[2019-12-23 10:49] LABS: AMPHETAMINE SCREEN,URINE NEGATIVE (NEGATIVE); BENZODIAZEPINES SCREEN, URINE NEGATIVE (NEGATIVE); COCAINE SCREEN URINE NEGATIVE (NEGATIVE); METHADONE SCREEN, URINE NEGATIVE (NEGATIVE); METHAMPHETAMINES SCREEN, URINE NEGATIVE (NEGATIVE); OPIATE SCREEN, URINE NEGATIVE (NEGATIVE); OXYCODONE SCREEN, URINE NEGATIVE (NEGATIVE); PROPOXYPHENE SCREEN, URINE NEGATIVE (NEGATIVE); TRICYCLIC ANTIDEPRESSANT,URINE NEGATIVE (NEGATIVE)
--- NOTE | 2019-12-23 12:07 | ED Physician Documentation ---
PD HPI MHE - Stated complaint Stated Complaint: MHE - Chief complaint Chief Complaint: MHE - History obtained from History obtained from: Patient - History of Present Illness Primary symptom: Psychosis. No: Suicidal ideation, Suicide attempt, Depression Contributing factors: Substance abuse - drugs (He states he been off of drugs for 6 months and then resumed meth use 10 days ago or 2 weeks ago with last use 10 days ago. He is still been having agitation and feels that his psychosis has been triggered with the meth use but has persisted even when he felt he should be improving. He is having scattered thoughts and auditory hallucinations. There is no command directives for self-harm nor harm of others. He does not feel suicidal. He would like to resume medications and states it been over he about a year since he had been on any prescriptions.), Off meds (He states he has not had a primary care so has not been prescribed any medicine for about a year had been BuSpar and hydroxyzine. Before that he had been on antidepressants such as Prozac and did well with those as well.) Similar symptoms before: Diagnosis (schizoaffective disorder.) Recently seen: Not recently seen Review of Systems Constitutional: denies: Fever, Chills Nose: denies: Rhinorrhea / runny nose, Congestion Throat: denies: Sore throat Cardiac: denies: Chest pain / pressure Respiratory: denies: Cough GI: denies: Nausea, Vomiting, Diarrhea PD PAST MEDICAL HISTORY - Past Medical History Past Medical History: Yes Cardiovascular: None Respiratory: None Psych: Anxiety, Bipolar disorder, Schizophrenia Musculoskeletal: None - Past Surgical History Past Surgical History: Yes Ortho: Spine surgery - Present Medications Home Medications: Ambulatory Orders Medication Instructions Recorded Confirmed FLUoxetine [PROzac] 10 mg PO DAILY #30 capsule 12/23/19 LORazepam [Ativan] 1 mg PO BID #10 tablet 12/23/19 OLANZapine [Olanzapine] 5 mg PO Q8H PRN #15 tablet 12/23/19 busPIRone [Buspar] 0 mg DAILY 12/23/19 12/23/19 hydrOXYzine HCL [Hydroxyzine HCl] 10 mg PO QPM #30 tablet 12/23/19 hydrOXYzine pamoate [Hydroxyzine 25 mg PO 12/23/19 Pamoate] - Allergies Allergies/Adverse Reactions: Allergies Allergy/AdvReac Type Severity Reaction Status Date / Time No Known Drug Allergies Allergy Verified 12/23/19 10:10 - Social History Does the pt smoke?: Yes Smoking Status: Current every day smoker Does the pt drink ETOH?: Yes Does the pt have substance abuse?: Yes Substance Use and Type: Meth - Immunizations Immunizations are current?: No Immunizations: TDAP >10years/unknown - POLST Patient has POLST: No POLST Status: Full Code PD ED PE NORMAL - Vitals Vital signs reviewed: Yes - General General: Alert and oriented X 3, No acute distress, Well developed/nourished - HEENT HEENT: Pharynx benign - Neck Neck: Supple, no meningeal sign, No adenopathy - Cardiac Cardiac: RRR, No murmur - Respiratory Respiratory: Clear bilaterally - Derm Derm: Normal color, Warm and dry - Neuro Neuro: Alert and oriented X 3, No motor deficit, Normal speech Eye Opening: Spontaneous Motor: Obeys Commands Verbal: Oriented GCS Score: 15 - Psych Psych: Other (Is able to talk in coherent sentences without any tangentiality. There is no pressuring of speech. She feels slightly anxious but not shaky.) Results - Vitals Vitals: Vital Signs - 24 hr 12/23/19 12/23/19 10:07 12:35 Temperature 37.1 C 36.9 C Heart Rate 90 86 Respiratory 19 12 Rate Blood Pressure 136/95 H 130/71 O2 Saturation 98 98 Oxygen O2 Source Room air - Labs Labs: Laboratory Tests 12/23/19 12/23/19 12/23/19 10:20 10:23 10:23 WBC 5.2 RBC 4.94 Hgb 15.6 Hct 46.7 MCV 94.5 H MCH 31.6 H MCHC 33.4 RDW 13.2 Plt Count 335 MPV 10.7 Neut # (Auto) 3.0 Lymph # (Auto) 1.6 Spencer # (Auto) 0.5 Eos # (Auto) 0.1 Baso # (Auto) 0.0 Absolute Nucleated RBC 0.00 Nucleated RBC % 0.0 Sodium 140 Potassium 3.6 Chloride 105 Carbon Dioxide 25 Anion Gap 10.0 BUN 11 Creatinine 0.8 Estimated GFR (MDRD) 103 Glucose 91 Calcium 8.9 Total Bilirubin 0.6 AST 20 ALT 23 Alkaline Phosphatase 67 Total Creatine Kinase Total Protein 7.0 Albumin 4.1 Globulin 2.9 Albumin/Globulin Ratio 1.4 Lipase 39 TSH Urine Color LIGHT YELLOW Urine Clarity CLEAR Urine pH 6.0 Ur Specific [place] <=1.005 Urine Protein NEGATIVE Urine Glucose (UA) NEGATIVE Urine Ketones NEGATIVE Urine Occult Blood NEGATIVE Urine Nitrite NEGATIVE Urine Bilirubin NEGATIVE Urine Urobilinogen 0.2 (NORMAL) Ur Leukocyte Esterase NEGATIVE Ur Microscopic Review NOT INDICATED Urine Culture Comments NOT INDICATED Salicylates < 6.0 Urine Opiates Screen NEGATIVE Ur Oxycodone Screen NEGATIVE Urine Methadone Screen NEGATIVE Ur Propoxyphene Screen NEGATIVE Acetaminophen < 10 L Ur Barbiturates Screen NEGATIVE Ur Tricyclics Screen NEGATIVE Ur Phencyclidine Scrn NEGATIVE Ur Amphetamine Screen NEGATIVE U Methamphetamines Scrn NEGATIVE U Benzodiazepines Scrn NEGATIVE Urine Cocaine Screen NEGATIVE U Cannabinoids Screen NEGATIVE Ethyl Alcohol 66.8 12/23/19 12/23/19 10:23 10:23 WBC RBC Hgb Hct MCV MCH MCHC RDW Plt Count MPV Neut # (Auto) Lymph # (Auto) Spencer # (Auto) Eos # (Auto) Baso # (Auto) Absolute Nucleated RBC Nucleated RBC % Sodium Potassium Chloride Carbon Dioxide Anion Gap BUN Creatinine Estimated GFR (MDRD) Glucose Calcium Total Bilirubin AST ALT Alkaline Phosphatase Total Creatine Kinase 70 Total Protein Albumin Globulin Albumin/Globulin Ratio Lipase TSH 0.89 Urine Color Urine Clarity Urine pH Ur Specific [place] Urine Protein Urine Glucose (UA) Urine Ketones Urine Occult Blood Urine Nitrite Urine Bilirubin Urine Urobilinogen Ur Leukocyte Esterase Ur Microscopic Review Urine Culture Comments Salicylates Urine Opiates Screen Ur Oxycodone Screen Urine Methadone Screen Ur Propoxyphene Screen Acetaminophen Ur Barbiturates Screen Ur Tricyclics Screen Ur Phencyclidine Scrn Ur Amphetamine Screen U Methamphetamines Scrn U Benzodiazepines Scrn Urine Cocaine Screen U Cannabinoids Screen Ethyl Alcohol PD MEDICAL DECISION MAKING - ED course Complexity details: considered differential (He states he had not been on any medicines for about a year. His most recent ones had been BuSpar and hydroxyzine. However he been on antidepressant previous to that and would like to try Prozac and had done okay for him in the past. He does have an appointment upcoming with the primary care but he asks and seems reasonable to initiate some of the treatments prior to that. Meanwhile he does need some help with the anxiety and some agitation related to the recent meth use and I can prescribe him a short term lorazepam twice daily if needed. I discussed with him the likely this is short-term only and would be less likely to be represcribed by his primary care. He can also use Zyprexa as needed for psychotic type symptoms or sleep as needed with the initial trial of it to see how he does and reevaluation of that with his primary care. Social work talked with him and arranged [facility] appointment for [facility] and he is to walk over there after discharge for an intake assessment.), d/w patient Departure - Departure Disposition: 01 Home, Self Care Clinical Impression: Methamphetamine abuse in remission Schizoaffective disorder Qualifiers: Schizoaffective disorder type: unspecified Qualified Code(s): F25.9 - Schizoaffective disorder, unspecified Condition: Stable Record reviewed to determine appropriate education?: Yes Follow-Up: Kandis Huertas ARNP [Primary Care Provider] - Prescriptions: FLUoxetine [PROzac] 10 mg PO DAILY #30 capsule hydrOXYzine HCL [Hydroxyzine HCl] 10 mg PO QPM #30 tablet LORazepam [Ativan] 1 mg PO BID #10 tablet OLANZapine [Olanzapine] 5 mg PO Q8H PRN #15 tablet PRN Reason: Anxiety Comments: Stay well-hydrated. Tylenol or ibuprofen if needed for aches and pains. You can use the lorazepam twice daily for the next several days to help with coming down off the math. Avoid alcohol and meth use. Start antidepressants and anxiety medicine with the Prozac and hydroxyzine as directed. Short-term you can use the olanzapine twice daily if needed for anxiety or voices etc. Follow-up with your primary care as planned. Go to [facility] for reinitiating counseling from the ER here. Discharge Date/Time: 12/23/19 12:53
[2019-12-23 12:36] VITALS: BP 130/71
== END 2019-12-23 12:53 | disposition home or self-care (01) ==
LOC: ED 09:54
DX: F15.11 Other stimulant abuse, in remission (principal); F25.9 Schizoaffective disorder, unspecified; F41.8 Other specified anxiety disorders; R45.1 Restlessness and agitation; F17.200 Nicotine dependence, unspecified, uncomplicated
CPT/HCPCS: 36415; 80053; 80306; 80307; 80320; 80329; 81003; 82550; 83690; 84443; 85025; 99283; 99284; A9270; 81001; 87086

== ENCOUNTER 2020-10-12 16:19 | Emergency (ER) | payer MEDICAID ==
[2020-10-12] MEDS ORDERED: LIDOCAINE 1% 2 ML VIAL MC ONE (17:06)
[2020-10-12] MEDS ORDERED: cefTRIAXone 1 GM VIAL IM STA (17:06)
--- NOTE | 2020-10-12 17:08 | ED Physician Documentation ---
History of Present Illness - Stated complaint Stated Complaint: TOOTH ACHE - Chief complaint Chief Complaint: Heent - History obtained from History obtained from: Patient - History of Present Illness Timing: Chronic - Additonal information Additional information: 50-year-old male presents to the emergency department for evaluation of left upper molar pain. He reports that he has had this pain for many months. Today he took 3 Ativan tablets to help with the pain as well as for [id number] ibuprofen tablets. He reports that it has not helped the pain and he has started to develop a little bit of facial swelling. He has no fever, trismus. He has normal phonation and swallow. This gentleman is homeless and admits to alcohol abuse as well as metham phetamine abuse. He is requesting narcotic prescription however I am concerned about abusive behaviors and have declined that at this time. Review of Systems Constitutional: denies: Fever, Chills Eyes: reports: Reviewed and negative Ears: reports: Reviewed and negative Nose: reports: Reviewed and negative Throat: reports: Dental pain / toothache Cardiac: reports: Reviewed and negative Respiratory: reports: Reviewed and negative GI: reports: Reviewed and negative : reports: Reviewed and negative Skin: reports: Rash Musculoskeletal: reports: Reviewed and negative PD PAST MEDICAL HISTORY - Past Medical History Past Medical History: Yes Cardiovascular: None Respiratory: None Psych: Anxiety, Bipolar disorder, Schizophrenia Musculoskeletal: None - Past Surgical History Past Surgical History: Yes Ortho: Spine surgery - Present Medications Home Medications: Ambulatory Orders Medication Instructions Recorded Confirmed FLUoxetine [PROzac] 10 mg PO DAILY #30 capsule 12/23/19 10/12/20 LORazepam [Ativan] 1 mg PO BID #10 tablet 12/23/19 10/12/20 Amox/Clav 875/125 [Augmentin] 1 each PO Q12H #20 tablet 10/12/20 Ibuprofen [Motrin] 600 mg PO Q6H PRN #30 tab 10/12/20 - Allergies Allergies/Adverse Reactions: Allergies Allergy/AdvReac Type Severity Reaction Status Date / Time No Known Drug Allergies Allergy Verified 10/12/20 16:35 - Social History Does the pt smoke?: No Smoking Status: Never smoker Does the pt drink ETOH?: Yes Does the pt have substance abuse?: Yes Substance Use and Type: Marijuana - Immunizations Immunizations are current?: No Immunizations: TDAP >10years/unknown - POLST Patient has POLST: No POLST Status: Full Code PD ED PE EXPANDED - General General: Alert, No acute distress, Disheveled, poorly kept - HEENT HEENT: Other (left sided cheek swelling. no trismus. Normal phonation. Generally poor dentition with decay. percussion tenderness tooth #17) - Neck Neck: Supple w/out meningeal sx, No tenderness. No: Adenopathy - Cardiac Cardiac: Regular Rate, Regular Rhythm, Radial strong equal, Pedal strong equal, Cap refill < 2 sec - Respiratory Respiratory: Clear to ausultation jeanne - Abdomen Abdomen: Normal Bowel sounds. No: Tender to palpation Results - Vitals Vitals: Vital Signs - 24 hr 10/12/20 16:27 Temperature 36.4 C L Heart Rate 94 Respiratory 16 Rate Blood Pressure 116/100 H O2 Saturation 98 Oxygen O2 Source Room air PD MEDICAL DECISION MAKING - ED course Complexity details: reviewed results ED course: 50-year-old gentleman who is homeless presents the emergency department with many months of left upper molar pain. Today he does have some mild facial swelling of the left cheek. He has no fever or trismus. He does admit to alcohol abuse as well as methamphetamine use. He is requesting narcotic prescription. However my concern is for abusive behaviors and I have declined to prescribe a narcotic today. He was given 1 g of ceftriaxone here in the emergency department and will be discharged with prescription for Augmentin. [place] We did [facility] that are available on a first come first serve walk-in basis. Emergent return precautions were discussed. Departure - Departure Disposition: 01 Home, Self Care Clinical Impression: Dental abscess Condition: Stable Instructions: ED Tooth Pain Prescriptions: Amox/Clav 875/125 [Augmentin] 1 each PO Q12H #20 tablet Ibuprofen [Motrin] 600 mg PO Q6H PRN #30 tab PRN Reason: Pain Comments: Karan the pain in your tooth will not improve until you are seen by dentist. I have prescribed an antibiotic that should help with the infection in the short- term however this will return until you do see a dentist. I would like you to gargle with warm salt water 3 times a day. [facility] [address] have dental clinics that have walk-in availability if you present in the morning before 9 or 10:00. [address] [address] Clinic If you are having any fevers, cannot speak normally, cannot open your mouth fully or have worsening facial swelling please return to the ER for second look
[2020-10-12 17:39] VITALS: BP 120/77
== END 2020-10-12 17:39 | disposition home or self-care (01) ==
LOC: ED 16:19
DX: K04.7 Periapical abscess without sinus (principal); Z59.0 Homelessness
CPT/HCPCS: 96372; 99283; 99284

== ENCOUNTER 2020-12-12 12:53 | Emergency (ER) | payer MEDICAID ==
[2020-12-12 13:02] VITALS: BP 108/71
[2020-12-12] MEDS ORDERED: hydrOXYzine PAMOATE 25 MG CAPSULE PO STA (15:34)
[2020-12-12] MEDS ORDERED: IBUPROFEN 600 MG TABLET PO STA (15:35)
--- NOTE | 2020-12-12 15:37 | ED Physician Documentation ---
History of Present Illness - Stated complaint Stated Complaint: BILAT FEET PX - Chief complaint Chief Complaint: Ext Problem - History obtained from History obtained from: Patient - Additonal information Additional information: 50-year-old man with history of polysubstance abuse, currently homeless presents with bilateral foot pain, swelling and tingling for the past 3 to 4 weeks, gradual in onset intermittent, aching, radiating from the toes to the foot, associated with sensation of numbness. Denies fevers, lesions, other issues. Denies trauma. Review of Systems Constitutional: denies: Fever, Chills Skin: denies: Lesions Musculoskeletal: reports: Extremity pain Neurologic: reports: Numbness (tingling numbness) PD PAST MEDICAL HISTORY - Past Medical History Cardiovascular: None Respiratory: None Psych: Anxiety, Bipolar disorder, Schizophrenia Musculoskeletal: None - Past Surgical History Past Surgical History: Yes Ortho: Spine surgery - Present Medications Home Medications: Ambulatory Orders Medication Instructions Recorded Confirmed hydrOXYzine PAMOATE [Vistaril] 25 mg PO Q6H PRN #30 tab 12/12/20 - Allergies Allergies/Adverse Reactions: Allergies Allergy/AdvReac Type Severity Reaction Status Date / Time No Known Drug Allergies Allergy Verified 12/12/20 12:57 - Social History Does the pt smoke?: No Smoking Status: Never smoker Does the pt drink ETOH?: Yes Does the pt have substance abuse?: Yes - Immunizations Immunizations are current?: No Immunizations: TDAP >10years/unknown - POLST Patient has POLST: No POLST Status: Full Code PD ED PE NORMAL - Vitals Vital signs reviewed: Yes - General General: Alert and oriented X 3, No acute distress, Other (disheveled appearing) - Extremities Extremities: No deformity, No tenderness to palpate, Normal ROM s pain, No chula ma, Other (no lesions or erythema. 2+ BL DP/PT pulses. normal cap refill. ) - Neuro Neuro: Alert and oriented X 3 Results - Vitals Vitals: Vital Signs - 24 hr 12/12/20 12:58 Temperature 36.9 C Heart Rate 100 Respiratory 18 Rate Blood Pressure 108/71 O2 Saturation 97 Oxygen O2 Source Room air PD MEDICAL DECISION MAKING - ED course ED course: 50-year-old undomiciled man presents with chronic lower extremity pain, requesting pain meds. Also asked for ativan and I offered nonaddictive alternative atarax which he accepted. script sent. strict return precautions given. patient will f/u in clinic. Departure - Departure Disposition: 01 Home, Self Care Clinical Impression: Foot pain, bilateral, Anxiety Condition: Good Instructions: ED RICE Prescriptions: hydrOXYzine PAMOATE [Vistaril] 25 mg PO Q6H PRN #30 tab PRN Reason: Anxiety Comments: You were seen in the emergency department for foot pain. This does not appear to be a gout flare. Take ibuprofen as needed for pain. You can take hydroxyzine for anxiety as needed. Follow-up in walk-in clinic. Return to the emergency department if you have any new or worsening symptoms or other problems for Discharge Date/Time: 12/12/20 15:42
== END 2020-12-12 15:42 | disposition home or self-care (01) ==
LOC: ED 12:53
DX: M79.672 Pain in left foot (principal); M79.671 Pain in right foot; F41.9 Anxiety disorder, unspecified; Z59.0 Homelessness
CPT/HCPCS: 99282; 99283; A9270

== ENCOUNTER 2021-01-19 13:26 | Emergency (ER) | payer MEDICAID ==
--- NOTE | 2021-01-19 13:53 | XRAY Report ---
PROCEDURE: Chest 2 View X-Ray INDICATIONS: Chest injury TECHNIQUE: 2 view(s) of the chest. COMPARISON: None. FINDINGS: Surgical changes and devices: Inferior thoracic fusion hardware noted. Lungs and pleura: No pleural effusions or pneumothorax. Lungs are clear. Mediastinum: Mediastinal contours are normal. Heart size is normal. Bones and chest wall: Remote right posterolateral rib fractures with healed bone callus. No acute fra cture demonstrated. Soft tissues appear unremarkable. IMPRESSION: No acute rib or chest wall fracture identified. Reviewed by: Jung Urena MD on 01/19/2021 1:52 PM PDT Approved by: Jung Urena MD on 01/19/2021 1:52 PM PDT Station ID: [id number]
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
[2021-01-19] MEDS ORDERED: KETOROLAC 60 MG/2 ML VIAL IM STA (14:24)
[2021-01-19] MEDS ORDERED: oxyCODONE 5 MG TABLET PO STA (14:24)
[2021-01-19 14:38] VITALS: BP 130/88
== END 2021-01-19 14:39 | disposition home or self-care (01) ==
LOC: ED 13:26
DX: R07.89 Other chest pain (principal); V19.9XXA Pedal cyclist (driver) (passenger) injured in unspecified traffic accident, initial encounter
CPT/HCPCS: 71046; 96372; 99283; 99284; A9270

== ENCOUNTER 2021-01-30 14:41 | Emergency (ER) | payer MEDICAID ==
[2021-01-30 15:24] LABS: BASOPHILS # (AUTO) 0.1 10^3/uL (0.0-0.1); BASOPHILS % (AUTO) 0.7 %; EOSINOPHILS # (AUTO) 0.1 10^3/uL (0.0-0.7); EOSINOPHILS % (AUTO) 1.3 %; HCT - HEMATOCRIT 44.9 % (42.0-52.0); HGB - HEMOGLOBIN 14.8 g/dL (14.0-18.0); LYMPHOCYTES # (AUTO) 2.3 10^3/uL (1.5-3.5); LYMPHOCYTES % (AUTO) 32.2 %; MEAN CORPUSCULAR VOLUME 94.1 fL (80.0-94.0); MEAN PLATELET VOLUME 9.6 fL (7.4-11.4); MONOCYTES # (AUTO) 0.6 10^3/uL (0.0-1.0); NEUTROPHILS % (AUTO) 56.4 %; PLT - PLATELET COUNT 406 10^3/uL (130-450); RED BLOOD COUNT 4.77 10^6/uL (4.70-6.10); RED CELL DISTRIBUTION WIDTH 13.2 % (12.0-15.0); WHITE BLOOD COUNT 7.1 x10^3/uL (4.8-10.8)
[2021-01-30 15:55] LABS: ACETAMINOPHEN < 10 ug/mL (10-30); ALBUMIN/GLOBULIN RATIO 1.2 (1.0-2.2); ALKALINE PHOSPHATASE 64 IU/L (42-121); ALT ALANINE AMINOTRANSFERASE 24 IU/L (10-60); AST ASPARTATE AMINOTRANSFERASE 19 IU/L (10-42); BILIRUBIN,TOTAL 0.7 mg/dL (0.2-1.0); BUN - BLOOD UREA NITROGEN 18 mg/dL (6-20); CALCIUM 9.3 mg/dL (8.5-10.3); CARBON DIOXIDE - CO2 22 mmol/L (21-32); CHLORIDE 103 mmol/L (101-111); CREATININE 0.7 mg/dL (0.6-1.2); ETOH - ETHANOL 88.1 mg/dL; GFR - MDRD 120 (>89); GLUCOSE 120 mg/dL (70-100); LIPASE 37 U/L (22-51); POTASSIUM 3.8 mmol/L (3.5-5.0); SALICYLATE < 6.0 mg/dL; SODIUM 137 mmol/L (135-145); TOTAL PROTEIN 7.4 g/dL (6.7-8.2)
[2021-01-30 17:55] LABS: MUDS CUTOFF CONCENTRATIONS CUTOFF CONC BELOW:
[2021-01-30 17:57] LABS: BILIRUBIN,URINE NEGATIVE (NEGATIVE); GLUCOSE, URINE (UA) NEGATIVE (NEGATIVE); KETONES,URINE (UA) NEGATIVE (NEGATIVE); LEUKOCYTE ESTERASE, URINE NEGATIVE (NEGATIVE); NITRITE,URINE NEGATIVE (NEGATIVE); OCCULT BLOOD,URINE NEGATIVE (NEGATIVE); PH,URINE 6.5 PH (5.0-7.5); PROTEIN,URINE NEGATIVE (NEGATIVE); UROBILINOGEN,URINE 0.2 (NORMAL) E.U./dL (NORMAL)
[2021-01-30 17:58] LABS: CLARITY,URINE CLEAR (CLEAR)
[2021-01-30 18:14] LABS: AMPHETAMINE SCREEN,URINE NEGATIVE (NEGATIVE); BARBITURATE SCREEN,UR NEGATIVE (NEGATIVE); BENZODIAZEPINES SCREEN, URINE POSITIVE (NEGATIVE); COCAINE SCREEN URINE NEGATIVE (NEGATIVE); METHADONE SCREEN, URINE NEGATIVE (NEGATIVE); METHAMPHETAMINES SCREEN, URINE NEGATIVE (NEGATIVE); OPIATE SCREEN, URINE NEGATIVE (NEGATIVE); OXYCODONE SCREEN, URINE NEGATIVE (NEGATIVE); PROPOXYPHENE SCREEN, URINE NEGATIVE (NEGATIVE); THC CANNABINOID SCREEN, URINE POSITIVE (NEGATIVE); TRICYCLIC ANTIDEPRESSANT,URINE NEGATIVE (NEGATIVE)
[2021-01-30 18:23] VITALS: BP 116/68
--- NOTE | 2021-01-30 18:26 | ED Physician Documentation ---
History of Present Illness - Stated complaint Stated Complaint: DETOX - Chief complaint Chief Complaint: General - History obtained from History obtained from: Patient - History of Present Illness Timing: Today Pain level max: 0 Pain level now: 0 - Additonal information Additional information: Patient is a 50-year-old male, states he is an alcoholic and would like to explore going to detox. He has been to rehab but this was about 15 years ago. Nothing makes it better or worse. Does not have a history of seizures or hallucinations. Currently not on medications. He states he drinks 6-7 drinks per day. Review of Systems Constitutional: denies: Fever, Chills Musculoskeletal: denies: Neck pain, Back pain Neurologic: denies: Headache PD PAST MEDICAL HISTORY - Past Medical History Past Medical History: Yes Cardiovascular: None Respiratory: None Psych: Anxiety, Bipolar disorder, Schizophrenia Musculoskeletal: None - Past Surgical History Past Surgical History: Yes Ortho: Spine surgery - Present Medications Home Medications: Ambulatory Orders Medication Instructions Recorded Confirmed FLUoxetine [PROzac] 10 mg DAILY 01/19/21 01/19/21 Ibuprofen [Motrin] 600 mg PO Q6H PRN #30 tab 01/19/21 LORazepam [Ativan] 1 mg BID 01/19/21 01/19/21 Meloxicam [Mobic] 1 tablet PO DAILY PRN 01/19/21 01/19/21 Oxycodone HCl/Acetaminophen 1 each PO Q6H PRN #15 tablet 01/19/21 [Percocet 10-325 mg Tablet] traZODone [Desyrel] 50 mg QPM 01/19/21 01/19/21 - Allergies Allergies/Adverse Reactions: Allergies Allergy/AdvReac Type Severity Reaction Status Date / Time No Known Drug Allergies Allergy Verified 01/30/21 14:47 - Social History Does the pt smoke?: No Smoking Status: Never smoker Does the pt drink ETOH?: Yes Does the pt have substance abuse?: Yes - Immunizations Immunizations are current?: No Immunizations: TDAP >10years/unknown - POLST Patient has POLST: No POLST Status: Full Code PD ED PE NORMAL - Vitals Vital signs reviewed: Yes - General General: Alert and oriented X 3, No acute distress, Well developed/nourished - HEENT HEENT: PERRL, Moist mucous membranes - Neck Neck: Supple, no meningeal sign - Cardiac Cardiac: RRR, Strong equal pulses - Respiratory Respiratory: No respiratory distress, Clear bilaterally - Abdomen Abdomen: Soft, Non tender, Non distended - Derm Derm: Warm and dry - Extremities Extremities: No edema, No calf tenderness / cord - Neuro Neuro: Alert and oriented X 3 - Psych Psych: Normal mood, Normal affect Results - Vitals Vitals: Vital Signs - 24 hr 01/30/21 01/30/21 14:47 18:23 Temperature 36.5 C Heart Rate 124 H 96 Respiratory 16 18 Rate Blood Pressure 103/85 H 116/68 O2 Saturation 96 96 Oxygen O2 Source Room air - Labs Labs: Laboratory Tests 01/30/21 01/30/21 01/30/21 15:20 15:20 15:20 WBC 7.1 RBC 4.77 Hgb 14.8 Hct 44.9 MCV 94.1 H MCH 31.0 MCHC 33.0 RDW 13.2 Plt Count 406 MPV 9.6 Neut # (Auto) 4.0 Lymph # (Auto) 2.3 [place] # (Auto) 0.6 Eos # (Auto) 0.1 Baso # (Auto) 0.1 Absolute Nucleated RBC 0.00 Nucleated RBC % 0.0 Sodium 137 Potassium 3.8 Chloride 103 Carbon Dioxide 22 Anion Gap 12.0 BUN 18 Creatinine 0.7 Estimated GFR (MDRD) 120 Glucose 120 H Calcium 9.3 Total Bilirubin 0.7 AST 19 ALT 24 Alkaline Phosphatase 64 Total Protein 7.4 Albumin 4.0 Globulin 3.4 Albumin/Globulin Ratio 1.2 Lipase 37 TSH 0.79 Urine Color Urine Clarity Urine pH Ur Specific [place] Urine Protein Urine Glucose (UA) Urine Ketones Urine Occult Blood Urine Nitrite Urine Bilirubin Urine Urobilinogen Ur Leukocyte Esterase Ur Microscopic Review Urine Culture Comments Nasal Adenovirus (PCR) Nasal B. parapertussis DNA (PCR) Nasal Coronavir 229E PCR Nasal Coronavir HKU1 PCR Nasal Coronavir NL63 PCR Nasal Coronavir OC43 PCR Nasal Enterovir/Rhinovir PCR Nasal Influenza B PCR Nasal Influenza A PCR Nasal Parainfluen 1 PCR Nasal Parainfluen 2 PCR Nasal Parainfluen 3 PCR Nasal Parainfluen 4 PCR Nasal RSV (PCR) Nasal B.pertussis DNA PCR Nasal C.pneumoniae (PCR) [place] Human Metapneumo PCR Nasal M.pneumoniae (PCR) Nasal SARS-CoV-2 (PCR) Salicylates < 6.0 Urine Opiates Screen Ur Oxycodone Screen Urine Methadone Screen Ur Propoxyphene Screen Acetaminophen < 10 L Ur Barbiturates Screen Ur Tricyclics Screen Ur Phencyclidine Scrn Ur Amphetamine Screen U Methamphetamines Scrn U Benzodiazepines Scrn Urine Cocaine Screen U Cannabinoids Screen Ethyl Alcohol 88.1 01/30/21 01/30/21 17:42 17:50 WBC RBC Hgb Hct MCV MCH MCHC RDW Plt Count MPV Neut # (Auto) Lymph # (Auto) [place] # (Auto) Eos # (Auto) Baso # (Auto) Absolute Nucleated RBC Nucleated RBC % Sodium Potassium Chloride Carbon Dioxide Anion Gap BUN Creatinine Estimated GFR (MDRD) Glucose Calcium Total Bilirubin AST ALT Alkaline Phosphatase Total Protein Albumin Globulin Albumin/Globulin Ratio Lipase TSH Urine Color YELLOW Urine Clarity CLEAR Urine pH 6.5 Ur Specific [place] <=1.005 Urine Protein NEGATIVE Urine Glucose (UA) NEGATIVE Urine Ketones NEGATIVE Urine Occult Blood NEGATIVE Urine Nitrite NEGATIVE Urine Bilirubin NEGATIVE Urine Urobilinogen 0.2 (NORMAL) Ur Leukocyte Esterase NEGATIVE Ur Microscopic Review NOT INDICATED Urine Culture Comments NOT INDICATED Nasal Adenovirus (PCR) NOT DETECTED Nasal B. parapertussis DNA (PCR) NOT DETECTED Nasal Coronavir 229E PCR NOT DETECTED Nasal Coronavir HKU1 PCR NOT DETECTED Nasal Coronavir NL63 PCR NOT DETECTED Nasal Coronavir OC43 PCR NOT DETECTED Nasal Enterovir/Rhinovir PCR NOT DETECTED Nasal Influenza B PCR NOT DETECTED Nasal Influenza A PCR NOT DETECTED Nasal Parainfluen 1 PCR NOT DETECTED Nasal Parainfluen 2 PCR NOT DETECTED Nasal Parainfluen 3 PCR NOT DETECTED Nasal Parainfluen 4 PCR NOT DETECTED Nasal RSV (PCR) NOT DETECTED Nasal B.pertussis DNA PCR NOT DETECTED Nasal C.pneumoniae (PCR) NOT DETECTED [place] Human Metapneumo PCR NOT DETECTED Nasal M.pneumoniae (PCR) NOT DETECTED Nasal SARS-CoV-2 (PCR) NOT DETECTED Salicylates Urine Opiates Screen NEGATIVE Ur Oxycodone Screen NEGATIVE Urine Methadone Screen NEGATIVE Ur Propoxyphene Screen NEGATIVE Acetaminophen Ur Barbiturates Screen NEGATIVE Ur Tricyclics Screen NEGATIVE Ur Phencyclidine Scrn NEGATIVE Ur Amphetamine Screen NEGATIVE U Methamphetamines Scrn NEGATIVE U Benzodiazepines Scrn POSITIVE H Urine Cocaine Screen NEGATIVE U Cannabinoids Screen POSITIVE H Ethyl Alcohol PD MEDICAL DECISION MAKING - ED course Complexity details: reviewed results, re-evaluated patient, considered elpidio cedeño, d/w patient ED course: Social work was consulted and there is no bed available [place]. The patient states he is comfortable going home and will recontact the crisis beds tomorrow to see if there is placement. Patient is not homicidal or suicidal. Patient is well-appearing, nontoxic. Patient counseled regarding signs and symptoms for which I believe and urgent re-evaluation would be necessary. Patient with good understanding of and agreement to plan and is comfortable going home at this time This document was made in part using voice recognition software. While efforts are made to proofread this document, sound alike and grammatical errors may occur. Departure - Departure Disposition: 01 Home, Self Care Clinical Impression: Alcoholism Condition: Good Instructions: ED Alcohol Abuse Follow-Up: Kandis Huertas ARNP [Primary Care Provider] - Comments: Follow-up with the detox beds tomorrow as directed by social work itzel. Return if you worsen. Discharge Date/Time: 01/30/21 19:30
[2021-01-30 18:46] LABS: B. PARAPERTUSSIS- RESP PCR PAN NOT DETECTED; B. PERTUSSIS- RESP PCR PANEL NOT DETECTED; C. PNEUMONIAE- RESP PCR PANEL NOT DETECTED; CORONAVIRUS 229E-RESP PCR NOT DETECTED; CORONAVIRUS HKU1-RESP PCR NOT DETECTED; CORONAVIRUS NL63-RESP PCR NOT DETECTED; CORONAVIRUS OC43-RESP PCR NOT DETECTED; HUMAN METAPNEUMOVIRUS NOT DETECTED; INFLUENZA A- RESP PCR PANEL NOT DETECTED; INFLUENZA B - RESP PCR PANEL NOT DETECTED; M. PNEUMONIAE- RESP PCR PANEL NOT DETECTED; PARAINFLUENZA VIRUS 1 NOT DETECTED; PARAINFLUENZA VIRUS 2 NOT DETECTED; PARAINFLUENZA VIRUS 3 NOT DETECTED; PARAINFLUENZA VIRUS 4 NOT DETECTED; RHINOVIRUS/ENTEROVIRUS NOT DETECTED; RSV- RESP PCR PANEL NOT DETECTED; SARS-CoV-2 -RESP PCR PANEL NOT DETECTED
--- OUTSIDE RECORDS SUMMARY | 2021-02-01 03:17 | EXTERNAL MEDICAL SUMMARY RPT | Continuity of Care Document ---
:1970 Demographics Phone Unavailable Preferred Language Unknown Marital Status Unknown Sabianism Affiliation Unknown Race Unknown Ethnic Group Unknown Author Organization [facility] Address [address] [id number] Phone Social History date description facility [phone]
--- OUTSIDE RECORDS SUMMARY | 2021-02-01 03:17 | EXTERNAL MEDICAL SUMMARY RPT | Continuity of Care Document ---
:1970 Demographics Phone Unavailable Preferred Language Unknown Marital Status Unknown Taoism Affiliation Unknown Race Unknown Ethnic Group Unknown Author Organization [facility] Address [address] [id number] Phone Social History date description facility [phone]
== END 2021-01-30 19:30 | disposition home or self-care (01) ==
LOC: ED 14:41
DX: Z02.2 Encounter for examination for admission to residential institution (principal); F10.20 Alcohol dependence, uncomplicated; Z20.822 Contact with and (suspected) exposure to COVID-19
CPT/HCPCS: 0202U; 36415; 80053; 80306; 80307; 80320; 80329; 81003; 83690; 84443; 85025; 99283; 81001; 87086

== ENCOUNTER 2023-12-16 11:28 | Outpatient (CLI) | payer MEDICAID ==
[2023-12-16 15:33] LABS: ESTIMATED AVERAGE GLUCOSE 117 mg/dL (70-100); HEMOGLOBIN A1c% 5.7 % (4.27-6.07)
[2023-12-16 15:34] LABS: BASOPHILS % (AUTO) 0.7 %; EOSINOPHILS # (AUTO) 0.1 10^3/uL (0.0-0.7); EOSINOPHILS % (AUTO) 1.4 %; HGB - HEMOGLOBIN 15.5 g/dL (14.0-18.0); LYMPHOCYTES # (AUTO) 1.9 10^3/uL (1.5-3.5); LYMPHOCYTES % (AUTO) 34.6 %; MEAN CORPUSCULAR HEMOGLOBIN 29.6 pg (27.0-31.0); MEAN CORPUSCULAR HGB CONC 32.3 g/dL (32.0-36.0); MEAN CORPUSCULAR VOLUME 91.6 fL (80.0-94.0); MEAN PLATELET VOLUME 11.1 fL (7.4-11.4); MONOCYTES # (AUTO) 0.4 10^3/uL (0.0-1.0); MONOCYTES % (AUTO) 7.6 %; NEUTROPHILS # (AUTO) 3.1 10^3/uL (1.5-6.6); NEUTROPHILS % (AUTO) 55.5 %; PLT - PLATELET COUNT 323 10^3/uL (130-450); RED BLOOD COUNT 5.24 10^6/uL (4.70-6.10); RED CELL DISTRIBUTION WIDTH 13.6 % (12.0-15.0); WHITE BLOOD COUNT 5.6 x10^3/uL (4.8-10.8)
[2023-12-16 15:50] LABS: THC CANNABINOID SCREEN, URINE NEGATIVE (NEGATIVE)
[2023-12-16 15:51] LABS: AMPHETAMINE SCREEN,URINE NEGATIVE (NEGATIVE); BARBITURATE SCREEN,UR NEGATIVE (NEGATIVE); BENZODIAZEPINES SCREEN, URINE POSITIVE (NEGATIVE); BUPRENORPHINE SCREEN, URINE NEGATIVE (NEGATIVE); COCAINE SCREEN URINE NEGATIVE (NEGATIVE); METHADONE SCREEN, URINE NEGATIVE (NEGATIVE); METHAMPHETAMINES SCREEN, URINE NEGATIVE (NEGATIVE); OPIATE SCREEN, URINE NEGATIVE (NEGATIVE); OXYCODONE SCREEN, URINE NEGATIVE (NEGATIVE); TRICYCLIC ANTIDEPRESSANT,URINE NEGATIVE (NEGATIVE)
[2023-12-16 16:01] LABS: % IRON SATURATION 21 % (20-50); ALBUMIN 4.4 g/dL (3.2-5.5); ALBUMIN/GLOBULIN RATIO 1.6 (1.0-2.2); ALKALINE PHOSPHATASE 58 IU/L (42-121); ALT ALANINE AMINOTRANSFERASE 13 IU/L (10-60); AST ASPARTATE AMINOTRANSFERASE 11 IU/L (10-42); BILIRUBIN,TOTAL 0.6 mg/dL (0.2-1.0); BUN - BLOOD UREA NITROGEN 11 mg/dL (6-20); CALCIUM 9.7 mg/dL (8.5-10.3); CARBON DIOXIDE - CO2 29 mmol/L (21-32); CHLORIDE 105 mmol/L (101-111); CHOL/HDL RATIO 7.1 (<5.0); CHOLESTEROL 291 mg/dL; CREATININE 0.9 mg/dL (0.6-1.3); GFR - MDRD 89 (>89); GLUCOSE 89 mg/dL (74-104); HDL CHOLESTEROL 41 mg/dL; IRON 68 ug/dL (50-212); LDL CHOLESTEROL,CALCULATED 203 mg/dL; POTASSIUM 4.3 mmol/L (3.5-4.5); SODIUM 139 mmol/L (135-145); TOTAL IRON BINDING CAPACITY 326 ug/dL (250-450); TOTAL PROTEIN 7.2 g/dL (6.4-8.9); TRANSFERRIN 233 mg/dL (203-362); TRIGLYCERIDES 236 mg/dL (48-352); VLDL CHOLESTEROL 47 mg/dL
[2023-12-16 16:04] LABS: PROLACTIN 6.07 ng/mL; THYROID STIMULATING HORMONE 1.25 uIU/mL (0.34-5.60)
== END 2023-12-16 11:29 | disposition home or self-care (01) ==
LOC: LAB.S 11:28
PROVIDERS: ATTEND Registered Nurse
DX: F32.A Depression, unspecified (principal); F41.9 Anxiety disorder, unspecified; Z79.899 Other long term (current) drug therapy; R53.83 Other fatigue; F20.9 Schizophrenia, unspecified
CPT/HCPCS: 36415; 80053; 80061; 80306; 82306; 82607; 83036; 83540; 83721; 84146; 84443; 84466; 85025

== ENCOUNTER 2024-02-29 08:00 | Outpatient (CLI) | payer MEDICAID ==
--- NOTE | 2024-03-01 07:18 | XRAY Report ---
PROCEDURE: Chest 2V INDICATIONS: ASTHMA TECHNIQUE: 2 views of the chest were acquired. COMPARISON: 01/19/2021 FINDINGS: Surgical changes and devices: Thoracic fusion hardware is partially evaluated. Lungs and pleura: Mildly low lung volumes. No dense airspace disease or pleural effusions. Mediastinum: Cardiomediastinal contours are unchanged. Normal heart size. Bones and chest wall: Possible old right rib fractures. There are also degenerative changes. IMPRESSION: Mildly low lung volumes. No acute radiographic abnormality. Reviewed by: Shailesh Cabello MD on 03/01/2024 7:17 AM PDT Approved by: Shailesh Cabello MD on 03/01/2024 7:17 AM PDT Station ID: [id number]
== END 2024-02-29 23:59 | disposition home or self-care (01) ==
LOC: DI.S 08:00
PROVIDERS: ATTEND Emergency Medicine
DX: J45.909 Unspecified asthma, uncomplicated (principal)

== ENCOUNTER 2024-03-10 12:23 | Emergency (ER) | payer MEDICAID ==
[2024-03-10 13:27] LABS: BASOPHILS # (AUTO) 0.1 10^3/uL (0.0-0.1); BASOPHILS % (AUTO) 0.5 %; EOSINOPHILS # (AUTO) 0.1 10^3/uL (0.0-0.7); EOSINOPHILS % (AUTO) 0.4 %; HCT - HEMATOCRIT 48.1 % (42.0-52.0); HGB - HEMOGLOBIN 15.8 g/dL (14.0-18.0); LYMPHOCYTES % (AUTO) 12.2 %; MEAN CORPUSCULAR HGB CONC 32.8 g/dL (32.0-36.0); MEAN CORPUSCULAR VOLUME 88.3 fL (80.0-94.0); MEAN PLATELET VOLUME 10.4 fL (7.4-11.4); MONOCYTES % (AUTO) 6.4 %; NEUTROPHILS # (AUTO) 12.9 10^3/uL (1.5-6.6); NEUTROPHILS % (AUTO) 79.2 %; PLT - PLATELET COUNT 453 10^3/uL (130-450); RED BLOOD COUNT 5.45 10^6/uL (4.70-6.10); RED CELL DISTRIBUTION WIDTH 13.2 % (12.0-15.0); WHITE BLOOD COUNT 16.3 x10^3/uL (4.8-10.8)
[2024-03-10 13:41] LABS: ACETAMINOPHEN 0.1 ug/mL; ALBUMIN 4.2 g/dL (3.2-5.5); ALBUMIN/GLOBULIN RATIO 1.4 (1.0-2.2); ALKALINE PHOSPHATASE 62 IU/L (42-121); ALT ALANINE AMINOTRANSFERASE 28 IU/L (10-60); AST ASPARTATE AMINOTRANSFERASE 23 IU/L (10-42); BILIRUBIN,TOTAL 0.8 mg/dL (0.2-1.0); BUN - BLOOD UREA NITROGEN 24 mg/dL (6-20); CALCIUM 9.6 mg/dL (8.5-10.3); CARBON DIOXIDE - CO2 29 mmol/L (21-32); CHLORIDE 102 mmol/L (101-111); CREATININE 0.9 mg/dL (0.6-1.3); ETOH - ETHANOL < 10.0 mg/dL; GFR - MDRD 89 (>89); GLUCOSE 113 mg/dL (74-104); LIPASE 31 U/L (11-82); POTASSIUM 3.1 mmol/L (3.5-4.5); SODIUM 138 mmol/L (135-145); TOTAL PROTEIN 7.3 g/dL (6.4-8.9)
[2024-03-10 13:53] LABS: THYROID STIMULATING HORMONE 1.37 uIU/mL (0.34-5.60)
[2024-03-10 13:54] LABS: SALICYLATE < 1.5 mg/dL
[2024-03-10] MEDS: POTASSIUM BICARB 25 MEQ TABLET PO ONE (15:58)
--- NOTE | 2024-03-10 16:54 | XRAY Report ---
PROCEDURE: Chest 1V INDICATIONS: cough/WBC 16 TECHNIQUE: One view of the chest was acquired. COMPARISON: 02/29/2024. FINDINGS: Surgical changes and devices: Spinal fixation hardware. Lungs and pleura: No pleural effusions or pneumothorax. Low lung volumes. Lungs are clear. Mediastinum: Mediastinal contours appear normal. Heart size is normal. Bones and chest wall: No suspicious bony lesions. Overlying soft tissues appear unremarkable. IMPRESSION: Low lung volumes. No focal pulmonary consolidations. Reviewed by: Josiah Mckay MD on 03/10/2024 4:53 PM PDT Approved by: Josiah Mckay MD on 03/10/2024 4:53 PM PDT Station ID: [id number]
--- NOTE | 2024-03-10 17:30 | ED Physician Documentation ---
History of Present Illness - Stated complaint Stated Complaint: MED CLEARANCE DETOX - Chief complaint Chief Complaint: General - History obtained from History obtained from: Patient - Additonal information Additional information: Patient is a 53-year-old male with a history of asthma presenting for evaluation for clearance to go to [facility] for detox from methamphetamine. He is accompanied by his [facility] upper caser. Patient is currently on a course of prednisone from his PCP for an asthma exacerbation. He has also been using his inhaler. He last used meth this morning. Denies other illicit substances. Denies chest pain, shortness of air, abdominal symptoms.No suicidal thoughts. Review of Systems Constitutional: denies: Fever Cardiac: denies: Chest pain / pressure Respiratory: reports: Cough. denies: Dyspnea GI: denies: Abdominal Pain PD PAST MEDICAL HISTORY - Past Medical History Past Medical History: Yes Cardiovascular: None Respiratory: Asthma Psych: Anxiety, Bipolar disorder, Schizophrenia Musculoskeletal: None - Past Surgical History Past Surgical History: Yes Ortho: Spine surgery - Present Medications Home Medications: Ambulatory Orders Medication Instructions Recorded Confirmed ARIPiprazole [Abilify] 5 mg PO DAILY 03/10/24 03/10/24 Albuterol Sulfate [Proair 1 - 2 puffs IH Q4HR PRN 03/10/24 03/10/24 Respiclick] Cetirizine [ZyrTEC] 10 mg PO DAILY 03/10/24 03/10/24 Fluticasone Propionate 1 puffs IH DAILY 03/10/24 03/10/24 [Fluticasone Propionate Hfa] Ipratropium/Albuterol [Combivent 1 puffs INH DAILY 03/10/24 03/10/24 Respimat] Montelukast [Singulair] 10 mg PO DAILY 03/10/24 03/10/24 Naltrexone HCl 50 mg PO DAILY 03/10/24 03/10/24 predniSONE [Prednisone 21-TAB dose 10 mg PO DAILY 03/10/24 03/10/24 pack] - Allergies Allergies/Adverse Reactions: Allergies Allergy/AdvReac Type Severity Reaction Status Date / Time No Known Drug Allergies Allergy Verified 03/10/24 12:58 - Social History Does the pt smoke?: No Smoking Status: Never smoker Does the pt drink ETOH?: Yes Does the pt have substance abuse?: Yes Substance Use and Type: Other - Immunizations Immunizations are current?: No Immunizations: TDAP >10years/unknown - POLST Patient has POLST: No POLST Status: Full Code PD ED PE NORMAL - General General: Alert and oriented X 3, No acute distress, Well developed/nourished - HEENT HEENT: Atraumatic - Neck Neck: Supple, no meningeal sign - Cardiac Cardiac: RRR, Strong equal pulses - Respiratory Respiratory: No respiratory distress, Clear bilaterally - Abdomen Abdomen: Normal bowel sounds, Soft, Non tender, Non distended - Derm Derm: Warm and dry - Neuro Neuro: Alert and oriented X 3, No motor deficit, Normal speech Results - Vitals Vitals: Vital Signs - 24 hr 03/10/24 03/10/24 12:53 18:06 Temperature 37 C 36.8 C Heart Rate 110 H 88 Respiratory 18 18 Rate Blood Pressure 151/99 H 130/88 H O2 Saturation 93 96 Oxygen O2 Source Room air - Labs Labs: Laboratory Tests 03/10/24 03/10/24 03/10/24 13:17 13:17 15:00 WBC 16.3 H RBC 5.45 Hgb 15.8 Hct 48.1 MCV 88.3 MCH 29.0 MCHC 32.8 RDW 13.2 Plt Count 453 H MPV 10.4 Neut # (Auto) 12.9 H Lymph # (Auto) 2.0 [place] # (Auto) 1.0 Eos # (Auto) 0.1 Baso # (Auto) 0.1 Absolute Nucleated RBC 0.00 Nucleated RBC % 0.0 Sodium 138 Potassium 3.1 L Chloride 102 Carbon Dioxide 29 Anion Gap 7.0 BUN 24 H Creatinine 0.9 Estimated GFR (MDRD) 89 Glucose 113 H Calcium 9.6 Total Bilirubin 0.8 AST 23 ALT 28 Alkaline Phosphatase 62 Total Protein 7.3 Albumin 4.2 Globulin 3.1 Albumin/Globulin Ratio 1.4 Lipase 31 TSH 1.37 Urine Color Urine Clarity Urine pH Ur Specific [place] Urine Protein Urine Glucose (UA) Urine Ketones Urine Occult Blood Urine Nitrite Urine Bilirubin Urine Urobilinogen Ur Leukocyte Esterase Ur Microscopic Review Urine Culture Comments Salicylates < 1.5 Urine Opiates Screen Ur Buprenorphine Scrn Ur Oxycodone Screen Urine Methadone Screen Acetaminophen 0.1 Ur Barbiturates Screen Ur Tricyclics Screen Ur Phencyclidine Scrn Ur Amphetamine Screen U Methamphetamines Scrn U Benzodiazepines Scrn Urine Cocaine Screen U Cannabinoids Screen Ur Drug Screen Comment Ethyl Alcohol < 10.0 SARS-CoV-2 (PCR) NOT DETECTED 03/10/24 16:56 WBC RBC Hgb Hct MCV MCH MCHC RDW Plt Count MPV Neut # (Auto) Lymph # (Auto) [place] # (Auto) Eos # (Auto) Baso # (Auto) Absolute Nucleated RBC Nucleated RBC % Sodium Potassium Chloride Carbon Dioxide Anion Gap BUN Creatinine Estimated GFR (MDRD) Glucose Calcium Total Bilirubin AST ALT Alkaline Phosphatase Total Protein Albumin Globulin Albumin/Globulin Ratio Lipase TSH Urine Color YELLOW Urine Clarity CLEAR Urine pH 6.0 Ur Specific [place] 1.020 Urine Protein NEGATIVE Urine Glucose (UA) NEGATIVE Urine Ketones TRACE Urine Occult Blood NEGATIVE Urine Nitrite NEGATIVE Urine Bilirubin SMALL H Urine Urobilinogen 0.2 (NORMAL) Ur Leukocyte Esterase NEGATIVE Ur Microscopic Review NOT INDICATED Urine Culture Comments NOT INDICATED Salicylates Urine Opiates Screen NEGATIVE Ur Buprenorphine Scrn NEGATIVE Ur Oxycodone Screen NEGATIVE Urine Methadone Screen NEGATIVE Acetaminophen Ur Barbiturates Screen NEGATIVE Ur Tricyclics Screen NEGATIVE Ur Phencyclidine Scrn NEGATIVE Ur Amphetamine Screen POSITIVE H U Methamphetamines Scrn POSITIVE H U Benzodiazepines Scrn POSITIVE H Urine Cocaine Screen NEGATIVE U Cannabinoids Screen NEGATIVE Ur Drug Screen Comment CUTOFF CONC BELOW: Ethyl Alcohol SARS-CoV-2 (PCR) PD Medical Decision Making - ED course Complexity details: reviewed results, re-evaluated patient, d/w patient ED course: Is a 53-year-old male presenting for medical clearance so that he can go to [facility] for methamphetamine detox. Patient does have a history of asthma and is currently on a course of prednisone. Mental health screening labs were obtained. Labs are significant for potassium of 3.1 which was replaced p.o. Elevation in white count at 16,000 which could be from current steroid use. Chest x-ray was obtained which I reviewed and I see no focal consolidation to suggest pneumonia.COVID swab is negative. Patient without any distress here but did seem like he was getting antsy so was given a dose of Ativan. Labs and paperwork were sent to [facility]. He does have an [facility] upper caser with him and per her reports she along with family members will help him get to [facility] once he has been accepted there.No further needs identified and they are comfortable with plan for discharge while awaiting to hear back from [facility]. 369 - Patient was finally able to give a urine sample. He is now medically cleared. Will send packet to [facility]. Departure - Departure Disposition: 01 Home, Self Care Clinical Impression: Methamphetamine abuse, Hypokalemia, Leukocytosis Condition: Stable Instructions: ED Drug Abuse General Comments: At this time you have been medically cleared for a [facility]. They are reviewing your packet.Please await their phone call for admission to their treatment facility. Continue with your medications including your albuterol and prednisone. Return to the ER with any worsening symptoms. [facility] [address] [place] [address] Main [facility] offers a monitored and safe setting for individuals withdrawing from alcohol and drugs, and counseling for individuals experiencing a mental health crisis. All services are provided in a 10-bed facility where intensive medical monitoring is required along with stabilization services. The goal of these services is to assess a clients mental health and substance use disorder related needs, and assist them in accessing the services they need to recover. Forms: PCP List Discharge Date/Time: 03/10/24 18:06
[2024-03-10 17:32] LABS: BILIRUBIN,URINE SMALL (NEGATIVE); GLUCOSE, URINE (UA) NEGATIVE (NEGATIVE); KETONES,URINE (UA) TRACE mg/dL (NEGATIVE); LEUKOCYTE ESTERASE, URINE NEGATIVE (NEGATIVE); NITRITE,URINE NEGATIVE (NEGATIVE); OCCULT BLOOD,URINE NEGATIVE (NEGATIVE); PROTEIN,URINE NEGATIVE (NEGATIVE); UROBILINOGEN,URINE 0.2 (NORMAL) E.U./dL (NORMAL)
[2024-03-10 17:33] LABS: CLARITY,URINE CLEAR (CLEAR)
[2024-03-10 17:43] LABS: AMPHETAMINE SCREEN,URINE POSITIVE (NEGATIVE); BARBITURATE SCREEN,UR NEGATIVE (NEGATIVE); BENZODIAZEPINES SCREEN, URINE POSITIVE (NEGATIVE); BUPRENORPHINE SCREEN, URINE NEGATIVE (NEGATIVE); COCAINE SCREEN URINE NEGATIVE (NEGATIVE); METHADONE SCREEN, URINE NEGATIVE (NEGATIVE); METHAMPHETAMINES SCREEN, URINE POSITIVE (NEGATIVE); OPIATE SCREEN, URINE NEGATIVE (NEGATIVE); OXYCODONE SCREEN, URINE NEGATIVE (NEGATIVE); THC CANNABINOID SCREEN, URINE NEGATIVE (NEGATIVE); TRICYCLIC ANTIDEPRESSANT,URINE NEGATIVE (NEGATIVE)
[2024-03-10] MEDS: LORazepam 1 MG TABLET PO STA (18:03)
[2024-03-10] MEDS: ALBUTEROL NEB 2.5 MG/3 ML INH STA (18:04)
[2024-03-10 18:14] VITALS: BP 130/88; O2SAT 96
== END 2024-03-10 18:06 | disposition home or self-care (01) ==
LOC: ED 12:23
DX: F15.10 Other stimulant abuse, uncomplicated (principal); D72.829 Elevated white blood cell count, unspecified; E87.6 Hypokalemia; J45.909 Unspecified asthma, uncomplicated; F20.9 Schizophrenia, unspecified; Z79.899 Other long term (current) drug therapy
CPT/HCPCS: 36415; 71045; 80053; 80143; 80179; 80306; 81003; 82077; 83690; 84443; 85025; 87635; 99284; A9270; J8499; 81001; 87086

== ENCOUNTER 2024-05-22 13:54 | Outpatient (CLI) | payer OTHER ==
--- NOTE | 2024-05-23 11:31 | XRAY Report ---
PROCEDURE: Shoulder 2+V BL INDICATIONS: SHOULDER PAIN TECHNIQUE: 3 views of the shoulder were acquired. COMPARISON: Chest radiograph dated 03/10/2024 and 02/29/2024. FINDINGS: Bones: No fractures or dislocations. Mild acromioclavicular joint and glenohumeral joint osteoarthr itic changes are seen. No suspicious bony lesions. Visualized ribs appear intact. Post fixation young ges are noted in upper to mid thoracic spine. Soft tissues: No suspicious soft tissue calcifications. The visualized lungs are within normal limi ts. IMPRESSION: No acute shoulder fracture or dislocation. Mild acromioclavicular joint osteoarthritis. Reviewed by: Alan Devlin MD on 05/23/2024 11:30 AM PDT Approved by: Alan Devlin MD on 05/23/2024 11:30 AM PDT Station ID: [id number]
== END 2024-05-22 13:55 | disposition home or self-care (01) ==
LOC: DI 13:54
PROVIDERS: ATTEND Internal Medicine Cardiovascular Disease
DX: M19.012 Primary osteoarthritis, left shoulder (principal); M19.011 Primary osteoarthritis, right shoulder